=== PATIENT | female | born 2000 | race Caucasian/White ===

== ENCOUNTER 2018-01-26 22:43 | Emergency (ER) | payer OTHER, SELFPAY ==
[2018-01-26 22:44] VITALS: BP 117/73; PULSE 87; RESP 20; TEMP 36.8; O2SAT 98; BMI 27.6
--- NOTE | 2018-01-26 23:06 | ED.DCSUM_ITS ---
- ER Visit Summary Date of Service: 01/26/18 Chief Complaint: Dental pain History of Present Illness: The patient is a 17 F presenting for evaluation secondary to dental pain. Patient reports that she has had a fractured tooth for a year. Patient states that over the course last week she has had increase of pain. Pain is sharp worse with palpation movement eating and drinking. Patient reports that she now is developing subjective fevers and has had nausea and vomiting. Patient states that associated with some facial swelling. Review of systems otherwise negative. Physical Examination: Vital signs within normal limits. Oral exam shows normal oral mucosa. There is evidence of an Moreau 2 dental fracture of the right maxillary bicuspid. No evidence of trismus. Soft sublingual space. No focal abscess noted and there is tenderness to tooth percussion of that area. Test Results: None indicated Emergency Department Course and Treatment: Patient presented secondary to dental pain. Given the fact that this is a old fracture with increasing pain and swelling there likely is an element of infection. Patient will be treated with Naprosyn Zofran and penicillin first doses given in the emergency department. Patient will follow up with a dentist Disposition: Discharge Impression: 1. Dental pain This note was generated with [employer] dictation software. It may contain incorrect words, spelling, and punctuation that were not noted in review of the chart prior to signing ED Disposition - Plan for ED Patient: Disposition: Home or Assisted Living Chief Complaint: Dental Diagnosis: Odontalgia Instructions: ED Tooth Pain Prescriptions: Ondansetron [Zofran Odt] 4 mg PO Q8H PRN PRN #10 tab PRN Reason: Nausea Naproxen [Naprosyn] 500 mg PO BID PRN #20 tab Penicillin V Potassium 500 mg PO 4X/DAY #40 tab Additional Instructions: F/u with a dentist
[2018-01-26] MEDS: Penicillin Vk 250 MG Tablet 500 MG PO (23:09)
[2018-01-26] MEDS: Naproxen 500 MG Tablet PO (23:09)
[2018-01-26] MEDS: Ondansetron ODT 4 MG Tablet PO (23:09)
== END 2018-01-26 23:48 | disposition home or self-care (01) ==
LOC: ED 23:26
PROVIDERS: Emergency Provider Emergency Medicine
DX: S02.5XXA Fracture of tooth (traumatic), initial encounter for closed fracture (principal); K08.89 Other specified disorders of teeth and supporting structures; X58.XXXA Exposure to other specified factors, initial encounter; Y93.9 Activity, unspecified; Y92.9 Unspecified place or not applicable
CPT/HCPCS: 99283

== ENCOUNTER 2018-11-24 16:32 | Emergency (ER) | payer OTHER, SELFPAY ==
[2018-11-24 16:33] VITALS: BP 117/76; PULSE 86; RESP 16; TEMP 36.6; O2SAT 98; BMI 25.6
--- NOTE | 2018-11-24 17:33 | ED.DCSUM_ITS ---
History of Present Illness Chief Complaint: Vag Bleeding Informant: Patient Pain: - - Lysed abdominal bloating Onset: Weeks - Onset October 19 Context: Sudden Onset Timing: Continuous Quality: Aching Location: - - Generalized Current Severity: Moderate Maximum Severity: Moderate Worsened by: - - Nothing Relieved by: - - Nothing Issue: Vaginal bleeding, Passing clots. Negative for: Passing tissue Onset: Weeks - October 19 Context: Sudden Onset Timing: Continuous Current Severity: Heavy Maximum Severity: Heavy Associated Symptoms: Negative for: Dysuria, Frequency, Urgency, Hematuria, Missed Period, Irregular Period Test: Negative Sexually: Active Control: No control P: 0 Narrative: Patient is a 18-year-old who presents with vaginal bleeding started October 19. She reports lightheadedness with standing quickly, fatigue and dyspnea. She does have pica. She has no history of bleeding disorder. There is no family history of bleeding disorder or abnormal heavy menstrual periods. She denies bruising easily or problems with bleeding prior to this episode. 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 Prior similar symptoms: No Recent Illness/Hospitalization: No - Past Medical History (1) No significant past medical history Status: Acute Past Medical History - Allergies and Home Meds Allergies/Adverse Reactions: Allergies No Known Allergies Allergy (Verified 11/24/18 16:35) Primary Care Physician: Nita Singh MD [STAFF PHYSICIAN] - 11/27/18 Care Physician,No Primary [Primary Care Provider] - Surgical History: no surgical history Lives: Alone Smoking Status: Former smoker Alcohol: None Drugs: None Review of Systems General: Reports: Malaise. Denies: Chills, Fever, Subjective, Sweats, Weight loss, - Eyes: Denies: Visual changes - bilaterally, Blurred Vision - bilaterally, Diplopia ENT: Denies: Bilateral ear pain, Rhinorrhea, Sore throat Cardiovascular: Denies: Chest pain, Palpitations Respiratory: Denies: Dyspnea, Cough, Dyspnea on exertion Gastrointestinal: Reports: Abdominal pain. Denies: Nausea, Vomiting, Diarrhea, Constipation, Melena, Hematochezia, -, - Genitourinary: Denies: Dysuria, Hematuria, Frequency Musculoskeletal: Denies: Myalgias, Arthralgias, Neck pain, Back pain, Swelling, Extremity Pain, -, - Skin: Denies: Rash, Wounds Neurological: Reports: Weakness. Denies: Headache, Parasthesia, Numbness, -, - Hematologic: Denies: Easy bruising, Easy bleeding, Lymphadenopathy, -, - Allergy: Denies: Uticaria, Swelling of the mouth, Swelling of the tongue, -, - Physical Exam Vital Signs/Narrative: Vital Signs Temp Pulse Resp BP Pulse Ox 11/24/18 16:33 97.8 F 86 16 117/76 98 Inital Vital Signs reviewed: Yes General: Well nourished, Well developed Head: Normocephalic, Atraumatic Eyes: Perrl, EOMI. Negative for: Pale conjunctiva, Scleral icterus ENT: Moist mucous membranes, No rhinorrhea Neck: Supple, Nontender Cardiovascular: Regular rate, Regular rhythm, No murmurs Respiratory: No distress, CTA bilaterally, Chest nontender Abdomen: Soft, Nontender, Nondistended, Normal bowel sounds : Speculum exam: Normal external genitalia, No vaginal lesions, Old blood, Mild active bleeding, - - null leila cervix. Negative for: No blood in vault, No active bleeding, Normal cervix, Small clots, Large clots, Vaginal tissue present, Cervical tissue present, Cervicitis, White vaginal discharge, Yellow vaginal discharge Bimanual exam: No cervical motion tenderness, Os closed, Normal size uterus, Nontender uterus, Nontender adnexa, bilat. Negative for: Cervical dilation, Tender Uterus, Uterine Mass, Uterine Enlargement Back: Nontender, Normal Inspection Extremities: Nontender, No edema. Negative for: Calf Tenderness Skin: No rash, Pallor. Negative for: Cyanosis, Diaphoresis, Jaundice, No Trauma Neurological: Alert, Oriented x3, Cranial nerves II-XII grossly intact, Normal Strength, Normal Sensation Psychological: Normal affect Diagnostic/Tx/Re-eval Impressions Transvaginal US 11/24/18 21:26 IMPRESSION: 1. Prominent vascular endometrium. 2. Nabothian cyst. 3. Normal bilateral ovaries. Electronically Signed: Tj Yanes DO at 22:17 EDT Tel [phone], Service support , 11/24/18 21:26 Transvaginal Non- [US] Stat Laboratory Results 11/24/18 11/24/18 11/24/18 17:45 17:45 17:45 WBC 4.6 RBC 2.98 L Hgb 7.3 L Hct 23.9 L MCV 80.2 L MCH 24.5 L MCHC 30.5 L RDW Std Deviation 42.3 RDW Coeff of Alejandro 14.4 Plt Count 302 MPV 9.3 Immature Gran % (Auto) 0.200 Neut % (Auto) 53.5 Lymph % (Auto) 37.1 [place] % (Auto) 8.6 Eos % (Auto) 0.2 Baso % (Auto) 0.4 Absolute Neuts (auto) 2.5 Absolute Lymphs (auto) 1.72 Nucleated RBC % 0 Serum , Qual NEGATIVE Blood Type TNP 11/24/18 17:45 WBC RBC Hgb Hct MCV MCH MCHC RDW Std Deviation RDW Coeff of Alejandro Plt Count MPV Immature Gran % (Auto) Neut % (Auto) Lymph % (Auto) [place] % (Auto) Eos % (Auto) Baso % (Auto) Absolute Neuts (auto) Absolute Lymphs (auto) Nucleated RBC % Serum , Qual Blood Type O NEGATIVE - Medical Decision/Diagnostic Studies Recess was obtained to rule out since she is sexually active. Clinically she appears pale. She has symptoms of iron deficiency anemia. Appropriate blood work was ordered to determine H&H and will perform pelvic exam. Case discussed with [facility] on-call. Requested ultrasound. If ultrasound normal discharge home with follow-up Tuesday otherwise will contact her county extension agent. Agrees with iron 325 mg 3 times daily. ED Disposition - Plan for ED Patient: Disposition: Home or Assisted Living Diagnosis: Vaginal bleeding, Anemia due to blood loss, Microcytic anemia Instructions: ANEMIA, Iron Deficiency (Adult), Dysfunctional Uterine Bleeding Prescriptions: Ferrous Gluconate [Iron] 240 mg PO TID #90 tab Prescription Printed Referrals: Care Physician,No Primary [Primary Care Provider] - Nita Singh MD [STAFF PHYSICIAN] - 11/27/18 Additional Instructions: Call office tomorrow morning to be seen Tuesday. You will need to take 1 iron tablet 3 times a day
[2018-11-24 17:57] LABS: Absolute Lymphocyte Count 1.72 X10^3/uL (0.83-4.51); Absolute Neutrophil Count 2.5 X10^3/uL (2.0-7.7); Basophil# 0.02 X10^3/uL; Basophil% 0.4 % (0-1); Eosinophil# 0.01 X10^3/uL; Eosinophils% 0.2 % (0-5); Hematocrit 23.9 % (37-47); Hemoglobin 7.3 g/dL (12.0-15.0); Lymphocyte # 1.72 X10^3/ul (4.0); Lymphocyte % 37.1 % (19-41); Mean Corp Hgb Conc 30.5 g/dL (32-36); Mean Corpuscular Hgb 24.5 pg (27.0-32.0); Mean Corpuscular Volume 80.2 fL (81-99); Mean Platelet Vol. 9.3 fl (6.2-12.0); Monocyte% 8.6 % (0-10); NRBC Flagged by Analyzer 0 % (0-5); Neutrophil # 2.47 X10^3/uL (2.7-7.7); Neutrophil % 53.5 % (47-70); Platelet Count 302 K/mm3 (150-450); RBC Distribution Width CV 14.4 % (11.6-14.6); RBC Distribution Width SD 42.3 fl (35.1-43.9); Red Blood Count 2.98 M/mm3 (4.2-5.4); White Blood Count 4.6 K/mm3 (4.4-11.0)
[2018-11-24 18:08] LABS: Internal QC Validated? YES +Cl - CLEAR BKGD; Pregnancy, Serum, hCG Quali. NEGATIVE Negative
[2018-11-24 18:27] VITALS: BP 107/65; RESP 18; O2SAT 95
--- NOTE | 2018-11-24 19:49 | CM.ED ---
SOCIAL WORK INFORMANT: SELF REFERRAL REASON FOR REFERRAL: NO PRIMARY CARE PHYSICIAN MET WITH PATIENT IN ROOM. INTRODUCED ROLE AND REASON FOR REFERRAL. DISCUSSED PRIMARY CARE AND IMPORTANCE OF ESTABLISHING WITH A PRIMARY CARE PROVIDER. LIST OF LOCAL PRIMARY CARE PHYSICIANS GIVEN TO PATIENT. PATIENT DENIES ANY FURTHER QUESTIONS OR CONCERNS. WILL RETURN HOME BEFORE AT D/C. CLAUDIO SUAREZ MSW, MEDICAL RECORDS TECHNICIAN.
[2018-11-24 20:42] VITALS: BP 106/64; PULSE 101; RESP 15; O2SAT 100
[2018-11-24] MEDS: Ondansetron 4 MG/2 ML Vial IV (20:42)
--- NOTE | 2018-11-24 21:26 | US_ITS ---
STUDY: ULTRASOUND OF THE FEMALE PELVIS - COMPLETE REASON FOR EXAM: Female, 18 years old. Vaginal bleeding since October 19 screws clots and severe pain. LMP: October 19, 2018. TECHNIQUE: Transvaginal TECHNICAL QUALITY: Adequate. COMPARISON: None. FINDINGS: The uterus is retroverted and is in a midline position. The uterus measures 7.4 x 5.8 x 4.1 cm. There is a Nabothian cyst of the cervix. The endometrium measures 19 mm in thickness, and is hyperechoic. No distinct mass of the liver is increased vascularity along the endometrium. There is no demonstrated myometrial mass. I.U.D. - The patient does not have an I.U.D. The right ovary is visualized. The right ovary measures 3.7 x 3.6 x 2.0 cm. There is a 1.7 x 1.7 x 1.3 cm dominant follicle. There is no visualized right adnexal mass or complex lesion. There is normal arterial and normal venous vascularity. The left ovary is visualized. The left ovary measures 3.4 x 2.7 x 2.2 cm. There are multiple follicles of the left ovary without a dominant cyst. There is no visualized left adnexal mass or complex lesion. There is normal arterial and normal venous vascularity. There is no fluid in the cul-de-sac. US/Transvaginal Non- IMPRESSION: 1. Prominent vascular endometrium. 2. Nabothian cyst. 3. Normal bilateral ovaries. Electronically Signed: Tj Yanes DO at 22:17 EDT Tel [phone], Service support ,
[2018-11-24 22:48] VITALS: BP 102/63; PULSE 98; RESP 16; O2SAT 98
== END 2018-11-24 22:49 | disposition home or self-care (01) ==
PROVIDERS: Emergency Provider Emergency Medicine
DX: N93.9 Abnormal uterine and vaginal bleeding, unspecified (principal); D50.0 Iron deficiency anemia secondary to blood loss (chronic); N88.8 Other specified noninflammatory disorders of cervix uteri; Z87.891 Personal history of nicotine dependence
CPT/HCPCS: 76830; 84703; 85025; 86900; 86901; 93976; 96374; 99283; A4216; J2405

== ENCOUNTER 2019-04-08 01:09 | Emergency (ER) | payer SELFPAY ==
[2019-04-08 01:10] VITALS: BP 119/77; PULSE 99; RESP 18; TEMP 36.9; O2SAT 97; BMI 27.3
[2019-04-08 01:48] LABS: Bacteria 0 SEEN /hpf (None Seen); Mucous, Urine 0 SEEN /hpf (<or=2+); Red Blood Cells-Urine 0 SEEN /hpf (0-5)
[2019-04-08 01:49] LABS: Color, Urine Straw (Yellow); Glucose, Dipstick Normal (Normal); Ketone-Dipstick Negative (Negative); Leukocyte Esterase-Dipstick 500 /ul (Negative); Nitrite-Dipstick Negative (Negative); Occult Blood-Urine 50 /ul (Negative); Protein-Dipstick Negative (Negative); Urine Bilirubin Dipstick Negative (Negative); Urine Clarity Clear (Clear); Urine Urobilinogen Normal (Normal)
[2019-04-08 01:54] LABS: Internal QC Validated? YES +Cl - CLEAR BKGD; Pregnancy, Urine Negative Negative
[2019-04-08 02:06] LABS: Squamous Epithelial Cells - UA 10-25 SEEN /hpf (5-10); White Blood Cells 5-10 SEEN /hpf (0-5)
[2019-04-08 02:19] VITALS: BP 107/82; PULSE 88; RESP 15; O2SAT 98
--- NOTE | 2019-04-08 02:21 | ED.DCSUM_ITS ---
- ER Visit Summary Date of Service: 04/08/19 Chief Complaint: UTI History of Present Illness: The patient is a 18 F with UTI symptoms for the past week. She reports suprapubic pain, pressure, dysuria. She does have bilateral lower back pain. No fevers. History of UTIs. Physical Examination: Afebrile and vital signs unremarkable. Suprapubic tenderness. No guarding or rebound. Back is tender over the SI regions bilaterally. No CVA tenderness. Test Results: Urinalysis shows elevated leukocyte esterase and white cells. test negative. Emergency Department Course and Treatment: Patient treated for cystitis with Macrobid and Pyridium. Follow-up with primary care. Return for new or worsening issues. Treatment Plan: As above Disposition: Discharge Impression: 1. UTI cystitis This note was generated with [employer] dictation software. It may contain incorrect words, spelling, and punctuation that were not noted in review of the chart prior to signing ED Disposition - Plan for ED Patient: Referrals: Care Physician,No Primary [Primary Care Provider] -
--- NOTE | 2019-04-08 02:22 | ED.DEP ---
ED Disposition - Plan for ED Patient: Instructions: Understanding Urinary Tract Infections (UTIs) Prescriptions: Nitrofurantoin Macrocrystals [Macrobid] 100 mg PO Q12 #10 cap Prescription Printed Phenazopyridine HCl [Pyridium] 200 mg PO TID #6 tab Prescription Printed Referrals: Madhuri Jones [NON-STAFF] -
[2019-04-08] MEDS: Nitrofurantoin Macrocrystals 100 MG Capsule PO (02:38)
[2019-04-08] MEDS: Phenazopyridine 95 MG Tablet 190 MG PO (02:38)
== END 2019-04-08 02:41 | disposition home or self-care (01) ==
PROVIDERS: Emergency Provider Emergency Medicine
DX: N30.90 Cystitis, unspecified without hematuria (principal); Z87.440 Personal history of urinary (tract) infections; Z87.891 Personal history of nicotine dependence
CPT/HCPCS: 81001; 81025; 99283

== ENCOUNTER 2019-06-29 23:01 | Emergency (ER) | payer SELFPAY ==
[2019-06-29 23:02] VITALS: BP 115/74; PULSE 96; RESP 18; TEMP 36.3; O2SAT 98; BMI 26.2
--- NOTE | 2019-06-29 23:08 | ED.VIS.GEN ---
History of Present Illness Chief Complaint: Cough Informant: Patient Onset: Weeks - Proximately 1 week ago Context: Sudden Onset Timing: Continuous Quality: Nasal congestion, sore throat and nonproductive cough Location: Upper respiratory Current Severity: Mild Maximum Severity: Mild Worsened by: Nothing Relieved by: Nothing Associated Symptoms: T-max 99.4 Narrative: Patient presents with viral-like symptoms of [1 week ago. She denies fever. She denies headache, photophobia, ocular, visual or auditory symptoms. She does report nasal congestion runny nose. She does report sore throat. The cough is nonproductive. She does not smoke. She states she vapes. She denies chest pain. She denies dyspnea with exertion. She denies GI symptoms. She denies myalgias arthralgias. She denies joint swelling. Prior similar symptoms: No Recent Illness/Hospitalization: No - Past Medical History (1) No significant past medical history Status: Acute Past Medical History - Allergies and Home Meds Allergies/Adverse Reactions: Allergies No Known Allergies Allergy (Verified 06/29/19 23:04) Primary Care Physician: Care Physician,No Primary [Primary Care Provider] - Prior records reviewed: Yes Surgical History: no surgical history Lives: Roommate Smoking Status: Never smoker Alcohol: None Drugs: None Review of Systems General: Denies: Chills, Fever, Malaise, Sweats Eyes: Denies: Visual changes - bilaterally, Blurred Vision - bilaterally ENT: Reports: Rhinorrhea, Sore throat. Denies: Bilateral ear pain Cardiovascular: Denies: Chest pain, Palpitations Respiratory: Reports: Cough. Denies: Dyspnea, Sputum, Dyspnea on exertion Gastrointestinal: Denies: Abdominal pain, Nausea, Vomiting, Diarrhea, Melena, Hematochezia Genitourinary: Denies: Dysuria, Hematuria, Frequency Musculoskeletal: Denies: Myalgias, Arthralgias, Neck pain, Back pain, Swelling, Extremity Pain, -, - Skin: Denies: Rash Neurological: Denies: Headache, Parasthesia Physical Exam Vital Signs/Narrative: Vital Signs Temp Pulse Resp BP Pulse Ox 06/29/19 23:02 97.3 F L 96 18 115/74 98 Inital Vital Signs reviewed: Yes General: Well nourished, Well developed, No Acute Distress Head: Normocephalic, Atraumatic Eyes: Perrl, EOMI ENT: Moist mucous membranes, No rhinorrhea Neck: Supple, Nontender Cardiovascular: Regular rate, Regular rhythm, No murmurs, Normal S1, Normal S2 Respiratory: No distress, CTA bilaterally, Chest nontender Abdomen: Soft, Nontender, Nondistended, Normal bowel sounds Extremities: Nontender, No edema Skin: Normal color, No rash Neurological: Alert, Oriented x3, Cranial nerves II-XII grossly intact, Normal Strength, Normal Sensation Psychological: Normal affect, Normal Mood Diagnostic/Tx/Re-eval - Medical Decision Making Patient's history and physical exam is consistent with viral upper respiratory infection. Since her vitals are normal and she does not have an elevated temperature imaging is not indicated nor is any blood testing including screening for influenza or any other viral infection. ED Disposition - Plan for ED Patient: Disposition: Home or Assisted Living Diagnosis: Upper respiratory infection with cough and congestion Instructions: URI, Viral, No Abx (Adult) Referrals: Care Physician,No Primary [Primary Care Provider] - Additional Instructions: If you are no better in 10 to 14 days follow-up with the primary care physician. The name of your primary care physician is listed on your insurance card.
[2019-06-29 23:47] VITALS: BP 115/74; PULSE 96; RESP 18; O2SAT 98
== END 2019-06-29 23:48 | disposition home or self-care (01) ==
LOC: ED 23:21
PROVIDERS: Emergency Provider Emergency Medicine
DX: J06.9 Acute upper respiratory infection, unspecified (principal); R05 Cough; R09.81 Nasal congestion
CPT/HCPCS: 99282

== ENCOUNTER 2020-04-25 22:51 | Emergency (ER) | payer BC, SELFPAY ==
[2020-04-25 22:51] VITALS: BP 133/77; PULSE 93; RESP 16; TEMP 36.4; O2SAT 98; BMI 25.2
--- NOTE | 2020-04-25 23:02 | ED.VIS.GEN ---
History of Present Illness Chief Complaint: Dental Informant: Patient Narrative: Patient presented with uvular gum inflammation. Is been bothering her for 3 months. She is done occasional Listerine and occasional peroxide with minimal relief. Comes in for further evaluation. She has a dentist appointment but not for several weeks. She is not having any dental pain. It hurts when water touches her gumline. Current severity is mild. 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 Denies: Rhinorrhea, Sore throat Cardiovascular: Denies: Chest pain, Palpitations Respiratory: Denies: Dyspnea, Cough, Dyspnea on exertion Gastrointestinal: Denies: Abdominal pain, Nausea, Vomiting, Diarrhea, Melena, Hematochezia Genitourinary: Denies: Dysuria, Hematuria, Frequency Musculoskeletal: Denies: Back pain, Extremity Pain Skin: Denies: Rash, Wounds Neurological: Denies: Headache, Weakness, Numbness Physical Exam Vital Signs/Narrative: Vital Signs Temp Pulse Resp BP Pulse Ox 04/25/20 22:51 97.5 F L 93 16 133/77 H 98 General: Well nourished, Well developed, No Acute Distress Head: Normocephalic, Atraumatic Eyes: Perrl, EOMI ENT: Moist mucous membranes, No rhinorrhea, - - Patient has superficial gingivitis on the lower mandibular gumline over the central lateral incisors. No abscess or dental infection. The rest of her gums are normal Neck: Supple, Nontender Cardiovascular: Regular rate, Regular rhythm, No murmurs Respiratory: No distress, CTA bilaterally, Chest nontender Abdomen: Soft, Nontender, Nondistended, Normal bowel sounds Back: Nontender, Normal Inspection Extremities: Nontender, No edema Skin: Normal color, No rash Neurological: Alert, Oriented x3, Cranial nerves II-XII grossly intact, Normal Strength, Normal Sensation Psychological: Normal affect, Normal Mood Diagnostic/Tx/Re-eval - Medical Decision Making Patient will be given oral periodex prescription mouthwash. We will follow-up as an outpatient with her dentist for gingivitis. There is no dental infection or abscess ED Disposition - Plan for ED Patient: Disposition: Home or Assisted Living Diagnosis: Gingivitis Instructions: Understanding Gingivitis Prescriptions: Chlorhexidine Gluconate [Periogard] 473 ml MM BID 30 Days #1 mouthwash Transmission Status: Pending to [facility] [id number]
== END 2020-04-25 23:16 | disposition home or self-care (01) ==
LOC: ED 23:11
PROVIDERS: Emergency Provider Emergency Medicine
DX: K05.10 Chronic gingivitis, plaque induced (principal); M54.2 Cervicalgia; G89.29 Other chronic pain
CPT/HCPCS: 99282

== ENCOUNTER 2022-04-14 08:03 | Emergency (ER) | payer MEDICAID, SELFPAY ==
[2022-04-14 08:04] VITALS: BP 132/78; PULSE 86; RESP 17; TEMP 35.6; O2SAT 98; BMI 27.5
--- NOTE | 2022-04-14 08:49 | EX.ED.DYSGE1 ---
HPI History of Present Illness Chief Complaint: Dizziness Informant: patient Onset/Context/Timing Onset: Days (4-5) Context: Sudden Onset (Getting out of bed in morning) Timing: Continuous and Waxes and wanes Quality: Spinning/movement Location: head Current Severity: Mild Maximum Severity: Severe Worsened by: Turning head or changing position of body such as sitting up or lying down Relieved by: Remaining still Associated Symptoms Associated Symptoms: URI symptoms, ears bothering her and popping on occasion, nausea Narrative Narrative: Patient has had concurrent URI symptoms along with cough, congestion, runny nose, she states her mom checked her temperature this morning and it was 100.4, but she did not have any fevers that she knew of before this morning. This been going on for 4 to 5 days. She states the dizziness is really making her anxious, she states she has anxiety issues that are not treated with any medications prior to this. She has a mild diffuse frontal headache. She denies any focal peripheral neurologic symptoms. When she feels dizzy her vision is blurry but she denies any diplopia, and the vision goes back to normal when her dizziness improves. She has had no otorrhea. She has had tinnitus bilaterally since the symptoms have started as well. 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 Home Medications meclizine 25 mg tablet 25 mg PO Q8H PRN PRN Dizziness #20 tabs 04/14/22 [Rx Last Taken Unknown] melatonin 5 mg tablet 5 mg PO QHS 04/14/22 [History Last Taken 04/10/22] metoclopramide HCl 10 mg tablet 10 mg PO Q6H PRN nausea and vomiting #12 tabs 04/14/22 [Rx Last Taken Unknown] Allergy/AdvReac Type Severity Reaction Status Date / Time No Known Allergies Allergy Verified 04/14/22 08:03 Social History Smoking Status: Current every day smoker tobacco type: cigarettes and e-cigarettes ROS ROS ED Constitutional Constitutional ED: Reports fever(s); Denies chills Eyes Eyes: Reports blurry vision bilateral (when vertiginous); Denies diplopia ENT ENT ED: Reports ear pain bilateral (and popping on occasion), headache(s), nasal congestion, rhinorrhea, tinnitus and vertigo; Denies sore throat Cardiovascular Cardiovascular: Denies chest pain or palpitations Respiratory/Chest Respiratory/Chest: Reports cough; Denies dyspnea Gastrointestinal Gastrointestinal: Denies abdominal pain, diarrhea, nausea or vomiting Genitourinary Genitourinary ED: Denies dysuria or hematuria Musculoskeletal Musculoskeletal: Denies back pain, myalgias or neck pain Integumentary Denies abscess or rash Neurologic Neurologic: Reports headache(s) and vertigo; Denies paresthesias or weakness Psychiatric Psychiatric: Reports anxiety; Denies depression, suicidal ideation or suicidal thoughts Endocrine Endocrinology: Denies polydipsia or polyuria EXAM Physical Exam Const Vital Signs: 04/14/22 08:04 04/14/22 08:04 Temperature 96.1 F L Temperature Source Temporal Pulse Rate 86 Respiratory Rate 17 Respiratory Effort Normal Non-Labored Respiratory Pattern Normal Blood Pressure 132/78 H Blood Pressure Mean 96 Pulse Ox 98 Oxygen Delivery Method Room Air Positive well nourished and well developed General Appearance ED: well developed and NAD HEENT Reports TM's clear and moist mucous membranes normocephalic and atraumatic Tympanic Membrane ED: Yes TM's clear Throat: Negative for posterior oropharynx abnormal Eyes PERRL and EOMs intact bilaterally Eyes Narrative: Fatigable horizontal nystagmus. No rotatory or vertical nystagmus. No conjunctival injection. Neck no lymphadenopathy, supple and no meningeal signs Resp normal respiratory effort and clear to auscultation bilaterally Cardio no murmurs Rate: regular rate; Negative for tachycardic Rhythm: regular rhythm GI normal to inspection, nondistended, normoactive bowel sounds and non-tender Back/Spine no CVA tenderness Back/Spine Narrative: FROM Extremity normal to inspection General Extremety ED: Negative for edema or tenderness General Extremity: Negative for edema Neuro oriented x3, CN's II-XII intact bilaterally and no sensory deficits noted Neuro Narrative: Normal [id number] and [id number] bilaterally. Normal gait without ataxia. Abnormal jolt sign, with difficulty focusing on object. Sensorium / Orientation: alert Motor Exam: strength 5/5 throughout Psych mental status grossly normal Skin no rashes or lesions noted Lesions: no lesions Rashes: no rashes MDM MDM MDM Narrative Medical decision making narrative: Her history and exam are definitely more consistent with peripheral etiology of vertigo. The patient was in the waiting room for a little while prior to evaluation so nurses ordered protocol orders on here which included work-up for central vertigo. I canceled most of this prior to it happening, I left the basic labs because of her history of anemia. Those labs are fine, and COVID and influenza are negative as well. In the meantime she was given Zofran and meclizine and had some improvement she will be be admitted prescriptions for medications to help with her symptoms, she want something for anxiety. I reassured her that the antihistamine should be fine for now and she can follow-up with her doctor for more medicines if they are needed. Lab Data Attestation: I reviewed the patient's lab results. Labs: Laboratory Results - last 24 hr 04/14/22 04/14/22 08:23 08:23 WBC 6.9 RBC 4.56 Hgb 12.7 Hct 37.8 MCV 82.9 MCH 27.9 MCHC 33.6 RDW Std Deviation 42.0 RDW Coeff of Alejandro 14.0 Plt Count 379 MPV 9.2 Immature Gran % (Auto) 0.100 Neut % (Auto) 57.8 Lymph % (Auto) 34.5 [place] % (Auto) 7.1 Eos % (Auto) 0.1 Baso % (Auto) 0.4 Absolute Neuts (auto) 4.0 Absolute Lymphs (auto) 2.37 Nucleated RBC % 0 Sodium 137 Potassium 3.6 Chloride 105 Carbon Dioxide 26.0 Anion Gap 6 BUN 13 Creatinine 0.73 Estim Creat Clear Calc 86.09 Est GFR (MDRD) Af Amer 126 Est GFR (MDRD) Non-Af 104 BUN/Creatinine Ratio 17.8 Glucose 99 Calcium 9.6 Discharge Plan Triage Chief Complaint: Dizziness ED Provider: Sreekanth Kuhn Dx/Rx/DC Orders Clinical Impression: Viral URI with cough, Peripheral vertigo Instructions: ED Vertigo, Unspecified, ED URI, Viral, No Abx (Adult) Prescriptions: New meclizine [meclizine] 25 mg tablet 25 mg PO Q8H PRN PRN (Reason: Dizziness) Qty: 20 0RF metoclopramide HCl [metoclopramide HCl] 10 mg tablet 10 mg PO Q6H PRN (Reason: nausea and vomiting) Qty: 12 0RF No Action melatonin 5 mg Tablet 5 mg PO QHS Primary Care Provider: Care Physician,No Primary Referrals: Care Physician,No Primary [Primary Care Provider] - Doctor,Your [Non-Staff] - 1 Week if not improving (check your insurance card for your primary care physician's name if you don't already know it) Disposition Disposition: Home, Self Care
[2022-04-14] MEDS: Ondansetron ODT 4 MG Tablet 8 MG PO (08:58)
[2022-04-14] MEDS: Ibuprofen 600 MG Tablet PO (08:58)
[2022-04-14] MEDS: Meclizine HCl 25 MG Tablet PO (08:58)
[2022-04-14 09:01] LABS: Absolute Lymphocyte Count 2.37 X10^3/uL (0.83-4.51); Basophil# 0.03 X10^3/uL; Basophil% 0.4 % (0-1); Eosinophil# 0.01 X10^3/uL; Eosinophils% 0.1 % (0-5); Hematocrit 37.8 % (37-47); Hemoglobin 12.7 g/dL (12.0-15.0); Lymphocyte # 2.37 X10^3/ul (0.83-4.51); Lymphocyte % 34.5 % (19-41); Mean Corp Hgb Conc 33.6 g/dL (32-36); Mean Corpuscular Hgb 27.9 pg (27.0-32.0); Mean Corpuscular Volume 82.9 fL (81-99); Mean Platelet Vol. 9.2 fl (6.2-12.0); Monocyte# 0.49 X10^3/uL; Monocyte% 7.1 % (0-10); NRBC Flagged by Analyzer 0 % (0-5); Neutrophil # 3.95 X10^3/uL (2.7-7.7); Neutrophil % 57.8 % (47-70); Platelet Count 379 K/mm3 (150-450); Red Blood Count 4.56 M/mm3 (4.2-5.4); White Blood Count 6.9 K/mm3 (4.4-11.0)
[2022-04-14 09:14] LABS: Anion Gap 6 (5-15); BUN 13 mg/dL (7-18); BUN/Creat Ratio 17.8 RATIO (10-20); Calcium,Total 9.6 mg/dL (8.5-10.1); Chloride 105 mmol/L (98-107); Creatinine, Serum 0.73 mg/dL (0.55-1.02); EST Glomerular Filtration Rate 104 mL/min (>60); Est Glom Filt Rate - Afr Amer 126 mL/min (>60); Estimated Creatinine Clearance 86.09 ml/min; Glucose 99 mg/dL (74-106); Potassium 3.6 mmol/L (3.5-5.1); Sodium Level 137 mmol/L (136-145)
[2022-04-14 09:41] VITALS: BP 124/63; PULSE 72; RESP 15; O2SAT 98
== END 2022-04-14 09:42 | disposition home or self-care (01) ==
PROVIDERS: Emergency Provider Emergency Medicine; Visit Provider Emergency Medicine
DX: J06.9 Acute upper respiratory infection, unspecified (principal); R42 Dizziness and giddiness; F17.210 Nicotine dependence, cigarettes, uncomplicated
CPT/HCPCS: 80048; 85025; 87428; 99284

== ENCOUNTER → 2024-08-08 | Outpatient (CLI) | payer MEDICAID, SELFPAY ==
[2024-08-08 16:55] LABS: Absolute Neutrophil Count 3.1 X10^3/uL (2.0-7.7); Basophil# 0.02 X10^3/uL; Basophil% 0.4 % (0-1); Eosinophil# 0.02 X10^3/uL; Eosinophils% 0.4 % (0-5); Hematocrit 28.2 % (37-47); Hemoglobin 8.1 g/dL (12.0-15.0); Mean Corp Hgb Conc 28.7 g/dL (32-36); Mean Corpuscular Hgb 21.4 pg (27.0-32.0); Mean Corpuscular Volume 74.6 fL (81-99); Monocyte# 0.33 X10^3/uL; Monocyte% 6.2 % (0-10); NRBC Flagged by Analyzer 0 % (0-5); Neutrophil # 3.12 X10^3/uL (2.7-7.7); Neutrophil % 58.8 % (47-70); Platelet Count 338 K/mm3 (150-450); RBC Distribution Width CV 16.8 % (11.6-14.6); RBC Distribution Width SD 45.5 fl (35.1-43.9); Red Blood Count 3.78 M/mm3 (4.2-5.4); White Blood Count 5.3 K/mm3 (4.4-11.0)
[2024-08-08 17:33] LABS: Hemoglobin A1c 4.9 % (<=5.6)
[2024-08-08 17:51] LABS: ALB/GLOB Ratio 1.5 RATIO (0.9-2.4); AST(SGOT) 19 U/L (<=31); Alanine Aminotransfer ALT/SGPT 11 U/L (<=34); Albumin, Serum 4.6 g/dL (3.5-5.0); Alkaline Phosphatase 84 U/L (35-104); Anion Gap 12 (5-15); BUN 9 mg/dL (4-19); BUN/Creat Ratio 12.3 RATIO (10-20); Calcium,Total 9.5 mg/dL (7.6-11.0); Carbon Dioxide 20.2 mmol/L (21.0-32.0); Chloride 106 mmol/L (98-108); Cholesterol 125 mg/dL (<=200); Creatinine, Serum 0.71 mg/dL (0.70-1.20); EST Glomerular Filtration Rate 121 (>60); Globulin 3.1 g/dL (2.2-4.2); Glucose 90 mg/dL (70-99); High Density Lipoprotein 44 mg/dL; Low Density Lipoprotein Calc. 67 mg/dL; Potassium 3.9 mmol/L (3.3-5.1); Protein, Total 7.7 g/dL (5.9-8.4); Sodium Level 138 mmol/L (133-145); Total Bilirubin 0.35 mg/dL (0.00-1.30); Triglycerides 69 mg/dL; Very Low Density Lipoprotein 14 mg/dL (5-40); Vitamin D,25 Hydroxy 21.3 ng/mL (30-100); cholesterol:hdl ratio screen 2.85
[2024-08-10 04:07] LABS: PROGESTERONE 0.1 ng/mL (.)
[2024-08-11 17:07] LABS: PROLACTIN 26.6 ng/mL (4.8-33.4); Testosterone Free 1.1 pg/mL (0.0-4.2)
[2024-08-13 15:23] LABS: HPV Reflexed? NOT INDICATED
== END | disposition home or self-care (01) ==
PROVIDERS: Referring Provider Nurse Practitioner Family; Visit Provider Nurse Practitioner Family
DX: E28.2 Polycystic ovarian syndrome (principal)
CPT/HCPCS: 36415; 80053; 80061; 82306; 82627; 83036; 84144; 84146; 84402; 84439; 84443; 85025; 88175; 82626; G0145

== ENCOUNTER → 2024-08-13 | Outpatient (CLI) | payer MEDICAID, SELFPAY ==
--- NOTE | 2024-08-13 17:56 | US_ITS ---
PROCEDURE: PELVIC W/ TRANSVAGINAL (USPELTVAG), 08/13/2024 REASON FOR EXAM: PCOS TECHNIQUE: Grayscale, color Doppler, and spectral Doppler transabdominal and transvaginal pelvic ultrasound was performed. COMPARISON: 11/24/2018 FINDINGS: Uterus: 6.9 x 4.8 x 3.5 cm, retroverted. Unremarkable echotexture. Endometrium: 19 mm, echogenic secretory appearance with tiny cystic areas are and associated vascularity. Cervix: Nabothian cysts Right ovary: 3.5 x 3.2 x 1.9 cm (estimated volume 11.1 mL). Numerous follicles however these do not appear peripherally located and there are less than 10 per single image. Normal low resistance arterial waveforms. Left ovary: 3.8 x 2.9 x 2.3 cm (estimated volume 13.2 mL. Numerous follicles, greater than or equal to 10 per image. Central stroma does not appear echogenic. Normal faint low resistance arterial and likely superimposed venous. Free fluid: Trace, potentially physiologic Other: Estimated bladder volume 263 mL. US/Pelvic w/ Transvaginal IMPRESSION: 1. Findings are borderline and narrowly do not meet criteria to suggest polycys tic ovarian syndrome on the RIGHT, however narrowly meet criteria on the LEFT. Correlate with clinical and laboratory lilian luation. 2. Endometrial thickening for a premenopausal female, with nonspecific heteroge neity and vascularity. This may reflect hyperplasia however recommend follow-up in the early proliferative phase when e ndometrial thickness is expected to be at a miguel to ensure resolution. 3. Additional description as above. Reading Location: [id number]
== END | disposition home or self-care (01) ==
LOC: US 17:53
PROVIDERS: PCP Nurse Practitioner Family; Referring Provider Nurse Practitioner Family; Visit Provider Nurse Practitioner Family
DX: E28.2 Polycystic ovarian syndrome (principal)
CPT/HCPCS: 76830; 76856

== ENCOUNTER 2024-08-28 12:58 | Outpatient (CLI) | payer MEDICAID, SELFPAY ==
[2024-08-28 13:13] VITALS: BP 106/63; PULSE 84; RESP 16; TEMP 36.5; O2SAT 100; BMI 26.9
[2024-08-28] MEDS: Iron Sucrose Complex (Venofer) 300 MG in 0.9% NaCl 250 ML 176.7 MG IV (13:33)
== END 2024-08-28 23:59 | disposition home or self-care (01) ==
LOC: MEDOUTP 12:59
PROVIDERS: Referring Provider Nurse Practitioner Family; Visit Provider Nurse Practitioner Family
DX: D64.9 Anemia, unspecified (principal)
CPT/HCPCS: 96365; 96366; J1756

== ENCOUNTER 2024-09-04 12:56 | Outpatient (CLI) | payer MEDICAID, SELFPAY ==
[2024-09-04 13:08] VITALS: BP 100/58; PULSE 79; RESP 16; TEMP 36.4; O2SAT 98
[2024-09-04] MEDS: 0.9% NaCl Peripheral Flush Adult IV (13:12)
[2024-09-04] MEDS: Iron Sucrose Complex (Venofer) 300 MG in 0.9% NaCl 250 ML 176.7 MG IV (13:17)
[2024-09-04] MEDS: 0.9% NaCl IVPB Med Flush (100mL) 15 ML IV (13:17)
[2024-09-04 15:15] VITALS: BP 103/60; PULSE 71; RESP 16; TEMP 37; O2SAT 98
== END 2024-09-04 23:59 | disposition home or self-care (01) ==
LOC: MEDOUTP 12:56
PROVIDERS: PCP Nurse Practitioner Family; Referring Provider Nurse Practitioner Family; Visit Provider Nurse Practitioner Family
DX: D64.9 Anemia, unspecified (principal)
CPT/HCPCS: 96365; 96366; J1756; A4216

== ENCOUNTER 2024-09-12 13:04 | Outpatient (CLI) | payer MEDICAID, SELFPAY ==
[2024-09-12 13:16] VITALS: BP 111/69; PULSE 88; RESP 16; TEMP 35.7; O2SAT 100
[2024-09-12] MEDS: 0.9% NaCl Peripheral Flush Adult IV (13:27)
[2024-09-12] MEDS: 0.9% NaCl IVPB Med Flush (100mL) 15 ML IV (13:27)
[2024-09-12] MEDS: Iron Sucrose Complex (Venofer) 300 MG in 0.9% NaCl 250 ML 176.7 MG IV (13:30)
[2024-09-12 15:24] VITALS: BP 100/56; PULSE 71; RESP 16
== END 2024-09-12 23:59 | disposition home or self-care (01) ==
LOC: MEDOUTP 13:04
PROVIDERS: PCP Nurse Practitioner Family; Referring Provider Nurse Practitioner Family; Visit Provider Nurse Practitioner Family
DX: D64.9 Anemia, unspecified (principal)
CPT/HCPCS: 96365; 96366; J1756; A4216

== ENCOUNTER → 2024-10-01 | Outpatient (CLI) | payer MEDICAID, SELFPAY ==
--- NOTE | 2024-10-01 16:23 | US_ITS ---
PROCEDURE: PELVIC W/ TRANSVAGINAL REASON FOR EXAM: AUB TECHNIQUE: PELVIC W/ TRANSVAGINAL COMPARISON: Prior study dated August 13, 2024. FINDINGS: LMP: September 25, 2024 Measurements: Uterus: 8.2 cm x 6.7 cm x 4.1 cm with a volume of 117.73 mL Endometrial Thickness: 5 mm. Trace amount of endometrial fluid. Right Ovary: 3.6 cm x 2.6 cm x 2.4 cm with a volume of 14.75 mL. Left Ovary: 3.8 cm x 2.3 cm x 2.3 cm with a volume of 8.65 mL. TRANSABDOMINAL: Uterus: Normal size, myometrial echotexture, and contour. Endometrium: Unremarkable. Right ovary: Small follicles are seen along the peripheral aspect of the right ovary. Left ovary: Small follicles are seen in the peripheral aspect of the left ovary. Other: No large pelvic mass identified. Transvaginal sonography was performed to better visualize the endometrium. TRANSVAGINAL: Uterus: Retroverted. Endometrium: Normal echotexture. Right ovary: Small follicles are seen in the peripheral aspect of the right ovary. Left ovary: Small follicles are seen in the peripheral aspect of the left ovary. Other adnexal findings: None. Cul-de-sac: No free intraperitoneal fluid identified. Tenderness: No tenderness US/Pelvic w/ Transvaginal IMPRESSION: Stable examination. Findings suggestive of polycystic ovary. Reading Location: [place] [id number]
== END | disposition home or self-care (01) ==
LOC: US 16:21
PROVIDERS: PCP Nurse Practitioner Family; Referring Provider Nurse Practitioner Family; Visit Provider Nurse Practitioner Family
DX: N93.9 Abnormal uterine and vaginal bleeding, unspecified (principal); E28.2 Polycystic ovarian syndrome
CPT/HCPCS: 76830; 76856

== ENCOUNTER → 2025-03-09 | Outpatient (CLI) | payer MEDICAID, SELFPAY ==
--- OUTSIDE RECORDS SUMMARY | 2025-03-09 11:28 | XMS RPT_ITS | CCD ---
Author Organization [facility] Care Team Providers Care Supervisor Toy [employer] Name Role Phone Care Physician, No Primary Primary Care Provider Unavailable Care Physician, No Primary Referring Provider Un available Ping NEWBERRY, CONI Rojo Attending Provider PHYSICIAN, NONE Primary Care Physician Unavailab Lang Cespedes MD Primary Care Provider DR. ANAND JOSE DO Attending Unavailable PHYSICIAN, NONE Primary Care Unavailable Poppy Pham Unavailable Unavailable Unavailable Poppy Pham CNP Primary Care Provider Ms. Poppy Pham Referring Unavailable Ankit, Kellen Tinoco Primary Care Unavailable Ankit, Ms. Poppy Tinoco Attending Unavailable Ankit, Kellen Poppychirag Tinoco Referring Unavailable Ankit, Kellen Tinoco Primary Care Unavailable Ankit, Ms. Poppy Tinoco Attending Unavailable Lang Chen MD Primary Care Provider JANINA GARCIA Referring Unavailable LANG CHEN Primary Care Unavailable JANINA GARCIA Attending Unavailable LANG CHEN Primary Care Unavailable Care Physician, No Primary Primary Care Provider Unavailable Care Physician, No Primary Referring Provider Un available Bhavesh STATIONARY ENGINEER REFRIGERATION-CKaylah Attending Provider Bhavesh MOHAN-CKaylah Referring Provider Poppy Wall Primary Care Provider Tammy Carcamo Attending Provider Unavailable Dr. Dain Mcgraw MD Attending Provider Poppy Wall Referring Provider Dr. Dain Mcgraw MD Referring Provider Bryn STATIONARY ENGINEER REFRIGERATION-CMansi Attending Provider Pham, Poppy Primary Care Unavailable Barkman, Kaylah Referring Unavailable Barkman, Kaylah Attending Unavailable Pham, Poppy Primary Care Unavailable Barkman, Kaylah Referring Unavailable Barkman, Kaylah Attending Unavailable Lucien, Dain Attending Unavailable Lucien, Dain Referring Unavailable Pham, Poppy Primary Care Unavailable Barkman, Kaylah Attending Unavailable Care Physician, No Primary Primary Care Unava ilable Barkman, Kaylah Referring Unavailable Barkman, Kaylah Attending Unavailable Care Physician, No Primary Primary Care Unava ilable Care Physician, No Primary Referring Unava ilable Lucien, Dain Attending Unavailable Barkman, Kaylah Referring Unavailable Pham, Poppy Primary Care Unavailable Pham, Poppy Referring Unavailable Barkman, Kaylah Attending Unavailable Pham, Poppy Referring Unavailable Pham, Poppy Primary Care Unavailable Barkman, Kaylah Attending Unavailable Tammy Carcamo Attending Unavailable Pham, Poppy Primary Care Unavailable Bryn STATIONARY ENGINEER REFRIGERATIONMansi Attending Unavailable Pham, Poppy Referring Unavailable Pham, Poppy Primary Care Unavailable Pham, Poppy Referring Unavailable Pham, Poppy Primary Care Unavailable Barkman, Kaylah Attending Unavailable Pham, Poppy Primary Care Unavailable Barkman, Kaylah Referring Unavailable Barkman, Kaylah Attending Unavailable Barkman, Kaylah Referring Unavailable Barkman, Kaylah Attending Unavailable Pham, Poppy Primary Care Unavailable Barkman, Kaylah Referring Unavailable Barkman, Kaylah Attending Unavailable Barkman STATIONARY ENGINEER REFRIGERATION-C, Kaylah Attending Physician Bhavesh STATIONARY ENGINEER REFRIGERATION-CKaylah Referring Provider Ankit STATIONARY ENGINEER REFRIGERATION-C, Poppy Primary Care Physician Dr. Dain Mcgraw MD Attending Physician Ankit STATIONARY ENGINEER REFRIGERATION-C, Poppy Referring Provider [id number] Bryn MOHAN-Mansi Valdes Attending Physician Allergies Allergy Classification Reported Allergen(s) Allergy Type Date of Onset Reaction(s) Facility (8 sources) Morphine Drug Allergy 08-08-2024 Vomiting [facility] Comment on above: vomiting blood (1 source) Morphine Drug Allergy 01-17-2025 [facility] Repository Medications Current Medications Medication Drug Class(es) Dates Sig (Normalized) Sig (Original) amoxicillin 875 mg oral tablet (1 source) Penicillin-class Antibacterial Start: 04-17-2022 End: 04-22-2022 amoxicillin 875 mg oral tablet Dose : 875 mg = 1 tab(s), Oral, BID, X 5 day(s), # 10 tab(s), 0 Refill(s), 04/22/22 3:10:00 EST Start Date: 04/17/22 Stop Date: 04/22/22 Status: Ordered hydrOXYzine pamoate 25 mg oral capsule (1 source) Antihistamine Start: 04-17-2022 End: 04-22-2022 Vistaril 25 mg oral capsule Dose : 25 mg = 1 cap(s), Oral, QID, X 5 day(s), # 20 cap(s), 0 Refill(s), 04/22/22 3:10:00 EST Start Date: 04/17/22 Stop Date: 04/22/22 Status: Ordered Melatonin (15 sources) Start: 04-17-2022 melatonin Dose : 3 mg =, qHS, 0 Refill(s) Start Date: 04/17/22 Status: Ordered Start: 04-14-2022 take 1 tablet by mouth at bedt bettina Melatonin 5 mg Tablet Active 5 mg PO AT BEDTIME April 14, 2022 1:00am Complies with drug therapy melatonin 5 mg O DT Take by mouth. 0 Active Comment on above: Take by mouth. Completed/Discontinued Medications Medication Drug Class(es) Dates Sig (Normalized) Sig (Original) busPIRone hydrochloride 5 mg oral tablet (7 sources) Start: 3 take 1 tablet by mouth three times daily as needed for anxiety busPIRone HCl - 5 MG Oral Tablet Take 1 tablet by mouth three times a day as needed for anxiety. Quantity: 90 Refills: 0 Ordered: 07-May-2022 Poppy Mars Start : 07-May-2022 Active chlorhexidine gluconate 1.2 mg/ml mouthwash (9 sources) Start: 1 End: 1 Chlorhexidine Gluconate 473 ML mouthwash Discontinued 473 mL MM TWICE A DAY 1 30 0 April 25, 2020 1:00am May 24, 2020 1:00am May 25, 2020 1:03am ergocalciferol 1.25 mg oral capsule (5 sources) Provitamin D2 Compound Start: 3 take 1 capsule by mouth every week Vitamin D (Ergocalciferol) 1.25 MG (04004 UT) Oral Capsule TAKE 1 CAPSULE WEEKLY. Quantity: 8 Refills: 1 Ordered: 17-May-2022 Ankit FLOYD-Poppy HOLDER Start : 17-May-2022 Active escitalopram 5 mg oral tablet (4 sources) Serotonin Reuptake Inhibitor Start: 3 take 1 tablet by mouth once daily Escitalopram Oxalate 5 MG Oral Tablet TAKE 1 TABLET DAILY. Quantity: 30 Refills: 0 Ordered: 24-May-2022 Poppy Mars Start : 24-May-2022 Active Ethinyl Estradiol / norgestimate (1 source) Progestin, Estrogen Start: 4 take 1 tablet by mouth once daily norgestimate 0.25 mg-ethinyl estradiol 35 mcg (SPRINTEC) 0.25-35 mg-mcg per tablet Take 1 tablet by mouth once daily. 28 tablet 11 05/19/2023 Active Comment on above: Take 1 tablet by antoinette th once daily. meclizine hydrochloride 25 mg oral tablet (9 sources) Antiemetic Start: 2 End: 5 take 1 tablet by mouth every eight hours as needed for dizziness Meclizine 25 mg tablet Discontinued 25 mg PO EVERY 8 HOURS NEEDED as needed for Dizziness 20 0 April 14, 2022 10:15am August 08, 2024 1:58pm medroxyPROGESTERone acetate 10 mg oral tablet (1 source) Progestin Start: 1 End: 3 medroxyPROGESTERone (PROVERA) 10 mg tablet Indications: PCOS (polycystic ovarian syndrome) , Secondary amenorrhea Take 1 tablet by mouth once daily for 10 days. Each month then stop 30 tablet 3 10/22/2020 04/27/2022 Discontinued Comment on above: Take 1 tablet by antoinette th once daily for 10 days. Each month then stop metoclopramide 10 mg oral tablet (9 sources) Dopamine-2 Receptor Antagonist Start: 2 End: 5 take 1 tablet by mouth every six hours as needed for nausea and vomiting Metoclopramide Hcl 10 mg tablet Discontinued 10 mg PO EVERY 6 HOURS as needed for nausea and vomiting 12 0 April 14, 2022 10:15am August 08, 2024 1:58pm MULTI-VITAMIN ORAL (4 sources) take 1 tablet by mouth once daily MULTI-VITAMIN ORAL Take 1 tablet by mouth once daily. 0 Active Comment on above: Take 1 tablet by antoinette th once daily. Multi-Vitamins TABS (7 sources) Multi-Vitamins T ABS Quantity: 0 Refills: 0 Ordered: 07-May-2022 DO Active norethindrone acetate 5 mg oral tablet (12 sources) Start: End: take 1 tablet by mouth once daily Norethindrone Acetate 5 mg tablet Discontinued 5 mg PO daily 90 4 September 07, 2024 11:15am January 17, 2025 1:19pm Start: 08-09-2024 End: 09-07-2024 Norethindrone Acetate 5 mg t ablet Discontinued 5 mg PO .COMPLEX 45 0 August 09, 2024 12:00am September 07, 2024 11:15am 5 mg orally TID until bleeding stops for 24hrs then BID to finish RX; predniSONE 10 mg oral tablet (2 sources) Start: 04-26-2022 End: 05-05-2022 predniSONE (DELTASONE) 10 mg tablet Indications: Vertigo , Tinnitus aurium, right Take 4 tabs daily for 3 days, then 2 tabs daily for 3 days, then 1 tab daily for 3 days with food. 21 tablet 0 04/26/2022 05/04/2022 Discontinued (Course of therapy completed) Comment on above: Take 4 tabs daily fo r 3 days, then 2 tabs daily for 3 days, then 1 tab daily for 3 days with food. Ngfiebdo-Bo-Kbp-Fe -FA ( VITAMIN) tab (1 source) Start: 10-22-2020 End: 04-27-2022 take 1 tablet by mouth once daily Yudekgbz-Zw-Xci-Fe- FA ( VITAMIN) tab Take 1 tablet by mouth once daily. 30 tablet 11 10/22/2020 04/27/2022 Discontinued Comment on above: Take 1 tablet by antoinette th once daily. sertraline 25 mg oral tablet (3 sources) Serotonin Reuptake Inhibitor Start: 05-07-2022 take 1 tablet by mouth once daily Sertraline HCl - 25 MG Oral Tablet take 1 tablet by mouth once daily Quantity: 30 Refills: 0 Ordered: 07-May-2022 Poppy Mars Start : 07-May-2022 Active SUMAtriptan 50 mg oral tablet (5 sources) Serotonin-1b and Serotonin-1d Receptor Agonist Start: 05-04-2022 End: 05-04-2022 SUMAtriptan (IMITREX) 50 mg tablet Take one tablet by mouth at the onset of the headache. If no improvement in 2 hours take one more tablet. No more than 2 tablets in 24 hours 4 tablet 0 05/04/2022 Active Comment on above: Take one tablet by m outh at the onset of the headache. If no improvement in 2 hours take one more tablet. No more than 2 tablets in 24 hours Problems Active Problems Problem Classification Problem Date Documented Da te Episodic/Chronic Administrative/social admission (20 sources) Patient encounter status; Translations: [Encounter for pre-employment examination] Episodic Anxiety disorders (14 sources) Anxiety; Translations: [Anxiety disorder, unspecified] Onset: 05-26-2018 Chronic Comment on above: 05/07/22: GAD7 severe anxiety; Blindness and vision defects (1 source) Blurring of visual image; Translations: [Other visual disturbances] Episodic Conditions associated with dizziness or vertigo (20 sources) Dizziness; Translations: [Dizziness and giddiness] Episodic Deficiency and other anemia (9 sources) Anemia due to blood loss; Translations: [Iron deficiency anemia secondary to blood loss (chronic)] 11-25-2018 Chronic Deficiency and other anemia (19 sources) Iron deficiency anemia due to blood loss; Translations: [Iron deficiency anemia secondary to blood loss (chronic)] 08-21-2024 Chronic Deficiency and other anemia (2 sources) Iron deficiency anemia secondary to blood loss (chronic); Translations: [Iron deficiency anemia secondary to blood loss (chronic)] Onset: 12-04-2024 Chronic Deficiency and other anemia (9 sources) Microcytic anemia; Translations: [Iron deficiency anemia, unspecified] 11-25-2018 Episodic Disorders of teeth and jaw (9 sources) Gingivitis; Translations: [Chronic gingivitis, plaque induced] 04-26-2020 Chronic Disorders of teeth and jaw (9 sources) Toothache; Translations: [Other specified disorders of teeth and supporting structures] 01-27-2018 Episodic Headache; including migraine (1 source) Headache; Translations: [Left-sided headache] Episodic Menstrual disorders (7 sources) Dysmenorrhea; Translations: [Dysmenorrhea, unspecified] Onset: 11-29-2018 11-29-2018 Chronic Mood disorders (7 sources) Depressive disorder; Translations: [Depressive disorder, not elsewhere classified] Chronic Comment on above: 05/07/22: PHQ9 severe depression; Nutritional deficiencies (5 sources) Vitamin D deficiency; Translations: [Unspecified vitamin D deficiency] Chronic Other ear and sense organ disorders (1 source) Subjective tinnitus of right ear; Translations: [Tinnitus, right ear] Episodic Other endocrine disorders (20 sources) Polycystic ovary syndrome; Translations: [Polycystic ovaries] 05-19-2023 Chronic Other endocrine disorders (1 source) Polycystic ovarian syndrome; Translations: [Polycystic ovarian syndrome] Onset: 11-12-2024 Chronic Other female genital disorders (9 sources) Vaginal bleeding; Translations: [Abnormal uterine and vaginal bleeding, unspecified] 11-25-2018 Chronic Other female genital disorders (19 sources) Abnormal uterine bleeding; Translations: [Abnormal uterine and vaginal bleeding, unspecified] 05-19-2023 Chronic Other female genital disorders (2 sources) Abnormal uterine and vaginal bleeding, unspecified; Translations: [Abnormal uterine bleeding (AUB)] Onset: 05-19-2023 Chronic Other hematologic conditions (1 source) History of anemia; Translations: [Personal history of diseases of the blood and blood-forming organs and certain disorders involving the immune mechanism] 08-09-2024 Episodic Other nervous system disorders (1 source) Numbness and tingling sensation of skin; Translations: [Anesthesia of skin] Episodic Other nutritional; endocrine; and metabolic disorders (7 sources) Overweight in adulthood with body mass index of 25 or more but less than 30; Translations: [Body Mass Index 27.0-27.9, adult] Episodic Other upper respiratory infections (18 sources) Viral upper respiratory tract infection; Translations: [Acute upper respiratory infection, unspecified] 04-22-2022 Episodic Unclassified (9 sources) 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 Unclassified (9 sources) No history of clinical finding in subject; Translations: [No significant past medical history] 11-24-2018 Past or Other Problems Problem Classification Problem Date Documented Da te Episodic/Chronic Deficiency and other anemia (1 source) Anemia, unspecified; Translations: [Anemia, unspecified] Onset: 09-19-2024 Episodic Genitourinary symptoms and ill-defined conditions (5 sources) Increased frequency of urination; Translations: [Frequency of micturition] Onset: 05-26-2018 05-26-2018 Episodic Other hematologic conditions (1 source) Personal history of diseases of the blood and blood-forming organs and certain disorders involving the immune mechanism; Translations: [Personal history of diseases of the blood and blood-forming organs and certain disorders involving the immune mechanism] Onset: 08-15-2024 Episodic Ovarian cyst (5 sources) Hemorrhagic cyst of ovary; Translations: [Unspecified ovarian cyst, unspecified side] Onset: 10-17-2020 10-17-2020 Episodic Results Test Name Value Interpretation Reference Range Facility Network Internship Office Visit Reporton 01-17-2025 Network Internship Office Visit Report [facility] [address], [address] [place] [address] OFFICE VISIT Date of Service: 01/17/25 MR#: [id number] Acct: [id number] Name: FARA WALDEN Rep #: [id number] : 2000 Provider: SISI Miller Age/Sex: 24/F Location: [facility] [place] Status: Signed Intake Vital Signs 12/04/24 14:06 01/17/25 13:18 Height 5 ft 2 in 5 ft 2 in Weight: 140 lb 7 oz 141 lb 5 oz BMI 25.7 25.8 BP 98/69 111/72 Blood Pressure Location Lt brachial Position Sitting Respiration 18 Pulse 77 Pulse Source Monitor Temp 98.9 F Temperature Source Temporal Artery Pulse Oximetry (%) 100 Oxygen Delivery Method room air Intake Visit Reasons: DISCUSS BC Cyber Defense Forensics Analyst Required: No Is patient in pain?: No Allergies morphine Allergy (Verified 01/17/25 13:15) Vomiting Medications ???Medication ???Instructions ???Recorded ???Confirmed ???Type melatonin 5 mg tablet 5 mg PO QHS 04/14/22 01/17/25 Hist ory Is last menstrual period known: No Post menopausal: No Patient : No : No Control Method: [facility] History Iron deficiency anemia due to chronic blood loss PCOS (polycystic ovarian syndrome) 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, pre-employment Family History Mother Age: 64 Anxiety Arthritis Father Age: 53 Alcoholism Arthritis Hypertension Brother Age: 29 Bowel disease Anxiety Asthma Social History adopted: No household members: significant other number of children: 0 current occupational status: unemployed current occupational exposures/hazards: No pets and animals: Yes (2 cats 2 dogs) leisure activities: exercise, music, fishing and reading history of recent travel: No sexually active: Yes Smoking Status: Never smoker Electronic Cigarette Use: with nicotine second hand exposure: Yes (Parents) quit status: not considering quitting alcohol intake: never substance use type: does not use diet: other well-balanced diet: about half the time caffeine: Yes Type: coffee eating out: rarely or never during the past year weight has: remained stable what type of physical activity do you participate in: walking frequency: daily duration: 45-60 minutes/day briana/yarsani: none seatbelt use: always do you feel safe at home: Yes additional social history: 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 She has a history of PCOS; previously noted to have heavy menses and irregular. She and her fiance are attempting . Has not used protection in 8 years. Has not had fertility work up completed thus far. Her LMP period was a "couple weeks ago" with spotting. Female Reproductive History Last Menstrual Period: 12/04/24 Cycle Length: 21-35 Questions: metrorrhagia: No, sexually active: Yes, dyspareunia: No and PCB: No History 0 Elective abortions Hx Para 0 Spontaneous abortions Hx # Term Pregnancies Ectopic pregnancies Hx # Pregnancies Multiple births # of living children 0 ROS Const Constitutional: Reports system reviewed and no additional complaints, except as documented Cardio Card: Reports system reviewed and no additional complaints, except as documented Resp Resp: Reports system reviewed and no additional complaints, except as documented GI GI: Reports system reviewed and no additional complaints, except as documented : Reports system reviewed and no additional complaints, except as documented Psych Psych: Reports system reviewed and no additional complaints, except as documented Exam Const General: cooperative, healthy appearing, comfortable, no acute distress and well developed Orientation: alert, awake and oriented x3 HENMT Head: normal to inspection Eyes General: appearance normal, both eyes and all related structures Neck Neck: normal visual inspection Resp Effort Inspection: normal respiratory effort and able to speak in complete sentences Skin General: no rashes or lesions noted Neuro General: patient alert, patient awake, patient oriented x3 and moves all extremities Psych Affect: normal affect Speech and Movement: speech and movement normal Coding Level of Care Code Established Pt Off vis,est,level 3 Patient Type Established Diagnoses PCOS (polycystic ovarian syndrome) E28.2 Iron deficiency anemia due to chronic blood loss D50.0 Infertility Assessment and Plan Assessment and Plan (1) PCOS (polycystic ovarian syndrome): Status: Acute Plan: Ultrasound results consistent with this. Will order day 3 an (more content not included)... Normal [facility] Absolute lymphocyte countOrd ered By[facility] 12-[facility]-2024 Lymphocytes Auto (Unsp spec) [#/Vol] 0.81 10*3/uL Low 0.83-4.51 [facility] Absolute neutrophil countOrd ered By: [facility] on 12-04-2024 Neutrophils (Bld) [#/Vol] 2.6 10*3/uL 2.0-7.7 [facility] Automated lymphocyte count a s percentage of total leukocytesOrdered By: Dain Mcgraw on 12-04-2024 Lymphocytes/100 WBC Auto (Unsp spec) 21.1 % 19- [facility] Basophil percentageOrdered B y: Dain Mcgraw on 12-04-2024 Basophils/100 WBC (Bld) 0.3 % 0-1 [facility] CBC W/Diff, Automatedon 11-16 Absolute Lymph 0.81 X10 3/uL Low 0.83-4.51 [facility] Comment on above: Performed By: #### L 100.9950, L503.6030, L100.0100, L503.6550 #### [facility] [address] [place], [address] Absolute Neut 2.6 X10 3/uL Normal 2.0-7.7 [facility] Comment on above: Performed By: #### L 100.9950, L503.6030, L100.0100, L503.6550 #### [facility] [address] [place], [address] Basophils/100 WBC (Bld) 0.3 % Normal 0-1 [facility] Comment on above: Performed By: #### L 100.9950, L503.6030, L100.0100, L503.6550 #### [facility] [address] [place], [address] Eosinophils/100 WBC (Bld) 0.5 % Normal 0-5 [facility] Comment on above: Performed By: #### L 100.9950, L503.6030, L100.0100, L503.6550 #### [facility] [address] [place], [address] Erythrocyte distribution width (RBC) [Ratio] 14.5 % Normal 11.6-14.6 [facility] Comment on above: Performed By: #### L 100.9950, L503.6030, L100.0100, L503.6550 #### [facility] [address] [place] [place], [address] Hematocrit (Bld) [Volume fraction] 35.9 % Low 37-47 [facility] Comment on above: Performed By: #### L 100.9950, L503.6030, L100.0100, L503.6550 #### [facility] [address] [place], [address] Hemoglobin (Bld) [Mass/Vol] 11.9 g/dL Low 12.0-15.0 [facility] Comment on above: Performed By: #### L 100.9950, L503.6030, L100.0100, L503.6550 #### [facility] [address] [place], [address] IG% 0.300 Normal 0.0-0.9 [facility] Comment on above: Result Comment: IG% - Immature Granulocytes (promyelocytes, myelocytes and metamyelocytes) > 1% indicates that a LEFT SHIFT is Present. Performed By: #### L 100.9950, L503.6030, L100.0100, L503.6550 #### [facility] [address] [place], [address] Lymphocytes/100 WBC (Bld) 21.1 % Normal 19-41 [facility] Comment on above: Performed By: #### L 100.9950, L503.6030, L100.0100, L503.6550 #### [facility] [address] [place], [address] MCH (RBC) [Entitic mass] 29.2 pg Normal 27.0-32.0 [facility] Comment on above: Performed By: #### L 100.9950, L503.6030, L100.0100, L503.6550 #### [facility] [address] [place], [address] MCHC (RBC) [Mass/Vol] 33.1 g/dL Normal 32-36 [facility] Comment on above: Performed By: #### L 100.9950, L503.6030, L100.0100, L503.6550 #### [facility] [address] [place], [address] MCV (RBC) [Entitic vol] 88.2 fL Normal 81-99 [facility] Comment on above: Performed By: #### L 100.9950, L503.6030, L100.0100, L503.6550 #### [facility] [address] [place], [address] Monocytes/100 WBC (Bld) 9.4 % Normal 0-10 [facility] Comment on above: Performed By: #### L 100.9950, L503.6030, L100.0100, L503.6550 #### [facility] [address] [place], [address] Neutrophils/100 WBC (Bld) 68.4 % Normal 47-70 [facility] Comment on above: Performed By: #### L 100.9950, L503.6030, L100.0100, L503.6550 #### [facility] [address] [place], [address] Nucleated RBC (Bld) [#/Vol] 0 10*3/uL Normal 0-5 [facility] Comment on above: Performed By: #### L 100.9950, L503.6030, L100.0100, L503.6550 #### [facility] [address] [place], [address] Platelet mean volume (Bld) [Entitic vol] 9.3 fL Normal 6.2-12.0 [facility] Comment on above: Performed By: #### L 100.9950, L503.6030, L100.0100, L503.6550 #### [facility] [address] [place], [address] Platelets (Bld) [#/Vol] 216 10*3/uL Normal 150-450 [facility] Comment on above: Performed By: #### L 100.9950, L503.6030, L100.0100, L503.6550 #### [facility] [address] [place], [address] RBC (Bld) [#/Vol] 4.07 10*6/uL Low 4.2-5.4 [facility] Comment on above: Performed By: #### L 100.9950, L503.6030, L100.0100, L503.6550 #### [facility] [address] [place], [place], [address] RDW SD 45.1 fl High 35.1-43.9 [facility] Comment on above: Performed By: #### L 100.9950, L503.6030, L100.0100, L503.6550 #### [facility] [address] [place], [address] WBC (Bld) [#/Vol] 3.8 10*3/uL Low 4.4-11.0 [facility] Comment on above: Performed By: #### L 100.9950, L503.6030, L100.0100, L503.6550 #### [facility] [address] [place], [address] Eosinophil percentageOrdered By: Dain Mcgraw on 12-04-2024 Eosinophils/100 WBC (Bld) 0.5 % 0-5 [facility] Erythrocyte distribution wid th ratioOrdered By: Dain Mcgraw on 12-04-2024 Erythrocyte distribution width (RBC) [Ratio] 14.5 % 11.6-14.6 [facility] Erythrocyte distribution wid th standard deviationOrdered By: Dain Mcgraw on 12-04-2024 Erythrocyte distribution width (RBC) [Ratio] 45.1 fl High 35.1-43.9 [facility] Ferritinon 12-04-2024 Ferritin [Mass/Vol] 14 ng/mL Low 22-378 [facility] Comment on above: Performed By: #### L 100.9950, L503.6030, L100.0100, L503.6550 ####[facility] [address] [place], [address] Hematocrit Auto (Bld) [Volum e fraction]Ordered By: Dain Mcgraw on 08-19-2025 Hematocrit (Bld) [Volume fraction] 35.9 % Low 37-47 [facility] Hemoglobin measurementOrdere d By: Dain Mcgraw on 12-04-2024 Hemoglobin (Bld) [Mass/Vol] 11.9 g/dL Low 12.0-15.0 [facility] Immature granulocytes/100 WB C Auto (Bld)Ordered By: Dain Mcgraw on 12-04-2024 Immature granulocytes/100 WBC (Bld) 0.300 % 0.0-0.9 [facility] Comment on above: IG% - Immature Granu locytes (promyelocytes, myelocytes and metamyelocytes) > 1% indicates that a LEFT SHIFT is Present. Iron measurement (mass/mass) Ordered By: Dain Mcgraw on 12-04-2024 Iron (Unsp spec) [Mass/Mass] 45 ug/dL Low 50-170 [facility] Iron+Iron Binding Capacityon 12-04-2024 Iron [Mass/Vol] 45 ug/dL Low 50-170 [facility] Comment on above: Performed By: #### L 100.9950, L503.6030, L100.0100, L503.6550 ####[facility] [address] [place], [address] IRON SATURATION 14.0 Normal 13-59 [facility] Comment on above: Performed By: #### L 100.9950, L503.6030, L100.0100, L503.6550 ####[facility] [address] [place], [address] TIBC 321 ug/dL Normal 250-450 [facility] Comment on above: Performed By: #### L 100.9950, L503.6030, L100.0100, L503.6550 ####[facility] [address] [facility] [address] UIBC 276 ug/dL Normal 228-428 [facility] Comment on above: Performed By: #### L 100.9950, L503.6030, L100.0100, L503.6550 ####[facility] [address] [place], [address] MCV (mean corpuscular volume ) determinationOrdered By: Dain Mcgraw on 12-04-2024 MCV (RBC) [Entitic vol] 88.2 fL 81-99 [facility] Mean corpuscular hemoglobin (MCH) determinationOrdered By: Dain Mcgraw on 12-04-2024 MCH (RBC) [Entitic mass] 29.2 pg 27.0-32.0 [facility] Mean corpuscular hemoglobin concentration (MCHC) determinationOrdered By: [facility] on 12-04-2024 MCHC (RBC) [Mass/Vol] 33.1 g/dL 32-36 [facility] Mean platelet volume determi nationOrdered By: Dain Mcgraw on 12-04-2024 Platelet mean volume (Bld) [Entitic vol] 9.3 fL 6.2-12.0 [facility] Monocyte percentageOrdered B y: Dain Mcgraw on 12-04-2024 Monocytes/100 WBC (Bld) 9.4 % 0-10 [facility] Neutrophil percentageOrdered By: [facility] Lucien on 12-04-2024 Neutrophils/100 WBC (Bld) 68.4 % 47-70 [facility] No Panel InformationOrdered By: Dain Mcgraw on 12-04-2024 Unsaturated Iron Binding Capacity 276 ug/dL 228-428 [facility] Nucleated red blood cell per centageOrdered By: [facility] on 12-04-2024 Nucleated RBC/100 WBC (Bld) [Ratio] 0 % 0-5 [facility] Oncology Visit Reporton 11-16 Oncology Visit Report [facility] [address] [place] [address] OFFICE VISIT Date of Service: 12/04/24 1404 MR#: [id number] Acct: [id number] Name: FARA WALDEN Rep #: [id number] : 2000 From: Mansi Clemente NP STATIONARY ENGINEER REFRIGERATION -C Age/Sex: 24/F Location: [facility] Status: Signed HPI Subjective Date of Service 12/04/24 Chief Complaint Iron deficiency anemia History of Present Illness 24-year-old female with chronic recurrent iron deficiency anemia due to heavy menstrual losses. In the past she has taken oral iron with response to her labs again when she stops taking iron. Venofer 300 mg weekly x 3 doses given 08/18/24-09/12/24. Interval History The patient is presenting to clinic for a routine 3 month follow up. Confirms good adherence and tolerance to p.o. iron daily (in a multivitamin with vitamin C). Specifically denies any GI upset, constipation, and hematochezia/melena. Reports menses remains heavy 3 to 4 days of 7. At this time does not have a follow-up with 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. [facility] Medical History Iron deficiency anemia due to chronic blood loss PCOS (polycystic ovarian syndrome) 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, pre-employment Family History Mother Age: 64 Anxiety Arthritis Father Age: 53 Alcoholism Arthritis Hypertension Brother Age: 29 Bowel disease Anxiety Asthma Social History adopted: No household members: significant other number of children: 0 current occupational status: unemployed current occupational exposures/hazards: No pets and animals: Yes (2 cats 2 dogs) leisure activities: exercise, music, fishing and reading history of recent travel: No sexually active: Yes Smoking Status: Never smoker Electronic Cigarette Use: with nicotine second hand exposure: Yes (Parents) quit status: not considering quitting alcohol intake: never substance use type: does not use diet: other well-balanced diet: about half the time caffeine: Yes Type: coffee eating out: rarely or never during the past year weight has: remained stable what type of physical activity do you participate in: walking frequency: daily duration: 45-60 minutes/day briana/yarsani: none seatbelt use: always do you feel safe at home: Yes additional social history: 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 ROS ROS Narrative Negative except as documented in the interval HPI Intake Vital Signs 08/21/24 15:24 09/12/24 13:16 12/04/24 14:06 Height 5 ft 2 in 5 ft 2 in 5 ft 2 in Weight: 140 lb 7 oz BMI 25.7 BP 98/69 Blood Pressure Location Lt brachial Position Sitting Respiration 18 Pulse 77 Pulse Source Monitor Temp 98.9 F Temperature Source Temporal Artery Pulse Oximetry (%) 100 Oxygen Delivery Method room air Intake Accompanied by: Self Is patient in pain?: No Allergies morphine Allergy (Verified 12/04/24 14:16) Vomiting Medications ???Medication ???Instructions ???Recorded ???Confirmed ???Type melatonin 5 mg tablet 5 mg PO QHS 04/14/22 12/04/24 Hist ory norethindrone acetate 5 mg tablet 5 mg PO QDAY #90 tabs 09/07/24 Rx Central Venous Access Central Venous Access: No Laboratory Tests 12/04/24 13:37 WBC 3.8 L Hgb 11.9 L Hct 35.9 L MCV 88.2 Plt Count 216 Iron 45 L TIBC 321 Iron Saturation 14.0 Unsaturated IBC 276 Exam Physical Exam Const alert, oriented x3, no apparent distress and healthy appearing General Appearance: cooperative and comfortable Resp normal respiratory effort and clear to auscultation bilaterally Cardio regular rate, regular rhythm, S1 normal heart sound and S2 normal heart sound GI normal to inspection, nondistended, normoactive bowel sounds and non-tender Psych mental status grossly normal Attitude: calm and engaged Coding Level of Care Code Off vis,est,level 4 Exam Problem Focused Diagnoses Iron deficiency anemia due to chronic blood loss D50.0 Assessment and Plan Assessment and Plan (1) Iron deficiency anemia due to chronic blood loss: Status: Chronic Orders: Orders CBC W/Diff, Automated 6 Months D50.0 - Iron deficiency anemia secondary to blood loss (chronic) Basic Metabolic Profile (BMP) 6 Months D50.0 - Iron deficiency anemia secondary to blood loss (chronic) KIKI + Protein Elect, Serum 6 Months D50.0 - Iron deficiency anemia secondary to blood loss (chronic) Ferritin 6 Months D50.0 - Iron deficiency anemia secondary to blood loss (chronic) Plan 24-year-old female with chronic recurrent iron deficiency anemia from heavy menstrual loss. She does respond to oral iron to relapse when she comes off oral iron. Recommendations (more content not included)... Normal [facility] Platelet countOrdered By: Azra Mcgraw on 12-04-2024 Platelets (Bld) [#/Vol] 216 10*3/uL 150-450 [facility] RBC Auto (Bld) [#/Vol]Ordere d By: Dain Mcgraw on 12-04-2024 RBC (Bld) [#/Vol] 4.07 10*6/uL Low 4.2-5.4 [facility] Retic Panelon 12-04-2024 IM RET FRACTION 5.40 Normal 3.00-15.90 [facility] Comment on above: Performed By: #### L 100.9950, L503.6030, L100.0100, L503.6550 #### [facility] [address] [place], [address] RET-HE 32.1 pg Normal 30-35 [facility] Comment on above: Performed By: #### L 100.9950, L503.6030, L100.0100, L503.6550 #### [facility] [address] [place], [address] Retic Count 1.00 Normal 0.5-1.5 [facility] Comment on above: Performed By: #### L 100.9950, L503.6030, L100.0100, L503.6550 #### [facility] [address] [place], [address] Reticulocyte hemoglobin equi valent (RET-He) measurementOrdered By: Dain Mcgraw on 12-04-2024 Hemoglobin (Reticulocytes) [Entitic mass] 32.1 pg 30-35 [facility] Reticulocytes Auto (Bld) [#/ Vol]Ordered By: Dain Mcgraw on 12-04-2024 Reticulocytes/100 RBC (Bld) 1.00 % 0.5-1.5 [facility] Serum or plasma ferritin stephie surement (mass/volume)Ordered By: Dain Mcgraw on 12-04-2024 Ferritin [Mass/Vol] 14 ng/mL Low 22-378 [facility] Serum or plasma iron saturat ion measurement (mass fraction)Ordered By: Dain Mcgraw on 12-04-2024 Iron saturation [Mass fraction] 14.0 % 13-59 [facility] White blood cell (WBC) count Ordered By: Dain Evansмария on 12-04-2024 WBC (Bld) [#/Vol] 3.8 10*3/uL Low 4.4-11.0 [facility] Pelvic w/ Transvaginalon Pelvic w/ Transvaginal [facility] [address] [place], [place] [address] Pelvic w/ Transvaginal MR#: [id number] Acct: [id number] Name: FARA WALDEN Rep #: [id number] : 2000 F 24 From: Jag alexis MD PCP: SISI Erickson Status: REG CLI Study: Pelvic w/ Transvaginal Date of Exam: 10/01/24 Exam# [id number] Ordering Dr: Kaylah Ospina PROCEDURE: PELVIC W/ TRANSVAGINAL REASON FOR EXAM: AUB TECHNIQUE: PELVIC W/ TRANSVAGINAL COMPARISON: Prior study dated August 13, 2024. FINDINGS: LMP: September 25, 2024 Measurements: Uterus: 8.2 cm x 6.7 cm x 4.1 cm with a volume of 117.73 mL Endometrial Thickness: 5 mm. Trace amount of endometrial fluid. Right Ovary: 3.6 cm x 2.6 cm x 2.4 cm with a volume of 14.75 mL. Left Ovary: 3.8 cm x 2.3 cm x 2.3 cm with a volume of 8.65 mL. TRANSABDOMINAL: Uterus: Normal size, myometrial echotexture, and contour. Endometrium: Unremarkable. Right ovary: Small follicles are seen along the peripheral aspect of the right ovary. Left ovary: Small follicles are seen in the peripheral aspect of the left ovary. Other: No large pelvic mass identified. Transvaginal sonography was performed to better visualize the endometrium. TRANSVAGINAL: Uterus: Retroverted. Endometrium: Normal echotexture. Right ovary: Small follicles are seen in the peripheral aspect of the right ovary. Left ovary: Small follicles are seen in the peripheral aspect of the left ovary. Other adnexal findings: None. Cul-de-sac: No free intraperitoneal fluid identified. Tenderness: No tenderness US/Pelvic w/ Transvaginal IMPRESSION: Stable examination. Findings suggestive of polycystic ovary. Reading Location: [place] [address] CC: SISI Ospina; SISI Pham Brake Liner: Signed Normal [facility] Network Internship Office Visit Reporton 09-05-2024 Network Internship Office Visit Report [facility] [address], [address] [place] [address] OFFICE VISIT Date of Service: 09/05/24 MR#: [id number] Acct: [id number] Name: FARA WALDEN Rep #: [id number] : 2000 Provider: SISI Miller Age/Sex: 24/F Location: [facility] Status: Signed Intake Vital Signs 08/08/24 14:53 08/28/24 13:13 09/04/24 13:08 09/05/24 09:34 Height 5 ft 2 in 5 ft 2 in 5 ft 2 in 5 ft 2 in Weight: 144 lb 4 oz BMI 26.4 BP 132/75 H Intake Visit Reasons: 4w fu per CB Cyber Defense Forensics Analyst Required: No Is patient in pain?: No Allergies morphine Allergy (Verified 09/05/24 09:36) Vomiting Medications ???Medication ???Instructions ???Recorded ???Confirmed ???Type melatonin 5 mg tablet 5 mg PO QHS 04/14/22 09/05/24 Hist ory norethindrone acetate 5 mg tablet 5 mg PO .COMPLEX #45 tabs 5 09/05/24 Rx Post menopausal: No Patient : No : [facility] History Iron deficiency anemia due to chronic blood loss PCOS (polycystic ovarian syndrome) 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, pre-employment Family History Mother Age: 64 Anxiety Arthritis Father Age: 52 Alcoholism Arthritis Hypertension Brother Age: 29 Bowel disease Anxiety Asthma Social History adopted: No household members: significant other number of children: 0 current occupational status: unemployed current occupational exposures/hazards: No pets and animals: Yes (2 cats 2 dogs) leisure activities: exercise, music, fishing and reading history of recent travel: No sexually active: Yes Smoking Status: Never smoker Electronic Cigarette Use: with nicotine second hand exposure: Yes (Parents) quit status: not considering quitting alcohol intake: never substance use type: does not use diet: other well-balanced diet: about half the time caffeine: Yes Type: coffee eating out: rarely or never during the past year weight has: remained stable what type of physical activity do you participate in: walking frequency: daily duration: 45-60 minutes/day briana/yarsani: none seatbelt use: always do you feel safe at home: Yes additional social history: 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 Her bleeding has stopped--she is on her last day of progesterone; she is feeling much better as well. She has had 2 iron infusions thus far and scheduled for her 3rd one. Has tolerated these well. She was also seen by Dr. Fleming--he recommended iron supplementation for presumed iron deficiency d/t menses. Will start this after she completes her infusion. History 0 Elective abortions Hx Para 0 Spontaneous abortions Hx # Term Pregnancies Ectopic pregnancies Hx # Pregnancies Multiple births # of living children 0 ROS Const Constitutional: Denies chills, fatigue, fever(s), headache(s) or weight loss Eyes Eyes: Denies change in vision ENT ENT: Denies dizziness Cardio Card: Denies chest pain or palpitations Resp Resp: Denies cough or dyspnea GI GI: Denies abdominal pain, constipation or nausea : Denies pelvic pain, vaginal discharge, vaginal dryness, vaginal odor or vaginal pruritus Neuro Neuro: Denies dizziness Exam Const General: cooperative, healthy appearing, comfortable, no acute distress, well groomed and well hydrated Nutritional Appearance: well nourished Orientation: alert, awake and oriented x3 HENMT Head: normal to inspection and normocephalic Ears: hearing grossly normal bilaterally and external ears normal Nose: external nose normal Face and sinus: normal facial exam Eyes General: appearance normal, both eyes and all related structures Resp Effort Inspection: normal respiratory effort, able to speak in complete sentences and symmetric chest movement Skin General: no rashes or lesions noted Neuro General: patient alert, patient awake, patient oriented x3 and moves all extremities Psych Appearance: grossly normal Mental Status: mental status grossly normal Affect: normal affect Speech and Movement: speech and movement normal Attitude: cooperative Coding Level of Care Code Established Pt Off vis,est,level 3 Patient Type Established Diagnoses Abnormal uterine bleeding N93.9 PCOS (polycystic ovarian syndrome) E28.2 Iron deficiency anemia due to chronic blood loss D50.0 Assessment and Plan Assessment and Plan (1) Abnormal uterine bleeding: Status: Acute Plan: recheck ultrasound ensure lining thins--order previously placed. Patient to call in 2 weeks with update of bleed or no bleed. Track menses. (more content not included)... Normal [facility] Oncology Visit Reporton Oncology Visit Report [facility] [place] [address] OFFICE VISIT Date of Service: 08/21/24 1524 MR#: [id number] Acct: [id number] Name: FARA WALDEN Rep #: [id number] : 2000 From: Dain Mcgraw MD Age/Sex: 24/F [place] [facility] [place]: Signed HPI Subjective Date of Service 08/21/24 Chief Complaint Anemia History of Present Illness 24-year-old female with chronic recurrent iron deficiency anemia due to heavy menstrual losses. In the past she has taken oral iron with response to her labs again when she stops taking iron. [facility] Medical History (Updated 08/21/24 @ 15:[address] Dain Mcgraw MD) Iron deficiency anemia due to chronic blood loss PCOS (polycystic ovarian syndrome) 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, pre-employment Family History Mother Age: 64 Anxiety Arthritis Father Age: 52 Alcoholism Arthritis Hypertension Brother Age: 29 Bowel disease Anxiety Asthma Social History adopted: No household members: significant other number of children: 0 current occupational status: unemployed current occupational exposures/hazards: No pets and animals: Yes (2 cats 2 dogs) leisure activities: exercise, music, fishing and reading history of recent travel: No sexually active: Yes Smoking Status: Never smoker Electronic Cigarette Use: with nicotine second hand exposure: Yes (Parents) quit status: not considering quitting alcohol intake: never substance use type: does not use diet: other well-balanced diet: about half the time caffeine: Yes Type: coffee eating out: rarely or never during the past year weight has: remained stable what type of physical activity do you participate in: walking frequency: daily duration: 45-60 minutes/day briana/yarsani: none seatbelt use: always do you feel safe at home: Yes 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 Constitutional Constitutional: Reports systems reviewed and no addt'l complaints, except as documented Eyes Eyes: Reports systems reviewed and no addt'l complaints, except as documented ENT HEENT: Reports systems reviewed and no addt'l complaints, except as documented; Denies bleeding gums or epistaxis Cardiovascular Cardiovascular: Reports systems reviewed and no addt'l complaints, except as documented Respiratory/Chest Respiratory/Chest: Reports systems reviewed and no addt'l complaints, except as documented Gastrointestinal Gastrointestinal: Reports systems reviewed and no addt'l complaints, except as documented; Denies hematochezia or melena Genitourinary Genitourinary: Reports systems reviewed and no addt'l complaints, except as documented; Denies hematuria Integumentary Integumentary: Reports systems reviewed and no addt'l complaints, except as documented Neurologic Neurologic: Reports systems reviewed and no addt'l complaints, except as documented Psychiatric Psychiatric: Reports systems reviewed and no addt'l complaints, except as documented Endocrine Endocrinology: Reports systems reviewed and no addt'l complaints, except as documented Hematologic/Lymphatic Hematologic/Lymphatic: Reports systems reviewed and no addt'l complaints, except as documented and anemia; Denies easy bleeding or easy bruising Allergic/Immunologic Allergic/Immunologic: Reports systems reviewed and no addt'l complaints, except as documented Intake Vital Signs 08/08/24 14:53 08/21/24 15:24 Height 5 ft 2 in 5 ft 2 in Weight: 65.771 kg BMI 26.5 BP 110/76 Blood Pressure Location Rt brachial Position Sitting Respiration 14 Pulse 93 Pulse Source Monitor Temp 98.2 F Temperature Source Temporal Artery Pulse Oximetry (%) 97 Oxygen Delivery Method room air Intake Cyber Defense Forensics Analyst Required: No Accompanied by: Significant Other Is patient in pain?: No Allergies morphine Allergy (Verified 08/21/24 15:26) Vomiting Medications ???Medication ???Instructions ???Recorded ???Confirmed ???Type melatonin 5 mg tablet 5 mg PO QHS 04/14/22 08/21/24 Hist ory norethindrone acetate 5 mg tablet 5 mg PO .COMPLEX #45 tabs 5 08/21/24 Rx Central Venous Access Central Venous Access: No Laboratory Tests 11/24/18 04/14/22 08/08/24 17:45 08:23 14:37 Hgb 7.3 L 12.7 8.1 L Ferritin 08/09/24 14:37 Hgb Ferritin 4 L Exam Physical Exam Const alert, oriented x3, no apparent distress and healthy appearing General Appearance: cooperative and comfortable Coding Level of Care Code Off vis,new,level 3 Exam Problem Focused Diagnoses Iron deficiency anemia due to chronic blood loss D50.0 Assessment and Plan Assessment and Plan (1) Iron deficiency (more content not included)... Normal [facility] Ferritinon 08-14-2024 Ferritin [Mass/Vol] 4 ng/mL Low 22-378 [facility] Comment on above: Performed By: #### L 503.6550, L503.6150, L503.0106 #### [facility] [address] [place], [place], [id number] Ironon 08-14-2024 Iron [Mass/Vol] 16 ug/dL Low 50-170 [facility] Comment on above: Performed By: #### L 503.6550, L503.6150, L503.0106 #### [facility] [address] [place], [address] Vitamin B12on 08-14-2024 Cobalamin (Vitamin B12) [Mass/Vol] 384 pg/mL Normal 180-914 [facility] Comment on above: Performed By: #### L 503.6550, L503.6150, L503.0106 #### [facility] [address] [place], [address] PAP I-G w/rfx hrHPV-Aptimaon 08-13-2024 ADEQ Comment Normal . [facility] Comment on above: Order Comment: Speci men Comment: [id number] Comment: No. of containers..01 ThinPrep Vial Result Comment: Sati sfactory for evaluation. No endocervical component is identified. Performed By: #### L 7400.0353 ####[facility] [address] [place], [address] COMM . Normal . [facility] Comment on above: Order Comment: Speci men Comment: [id number] Comment: No. of containers..01 ThinPrep Vial Performed By: #### L 7400.0353 ####[facility] [address] [place], [address] COMMENT Comment Normal . [facility] Comment on above: Order Comment: Speci men Comment: [id number] Comment: No. of containers..01 ThinPrep Vial Result Comment: This liquid based ThinPrep(R) pap test was screened with the use of an image guided system. Performed By: #### L 7400.0353 ####[facility] [address] [place], [address] DIAG Comment Normal . [facility] Comment on above: Order Comment: Speci men Comment: [id number] Comment: No. of containers..01 ThinPrep Vial Result Comment: NEGA TIVE FOR INTRAEPITHELIAL LESION OR MALIGNANCY. Performed By: #### L 7400.0353 ####[facility] [address] [place], [address] HPV RFLX Comment Normal . [facility] Comment on above: Order Comment: Speci men Comment: [id number] Comment: No. of containers..01 ThinPrep Vial Result Comment: The HPV DNA reflex criteria were not met with this specimen result therefore, no HPV testing was performed. Performed at: [address] [id number] [employer] Dr[employer] Operator Helper: Shaunna Allison MD, Phone: [phone] Performed By: #### L 7400.0353 ####[facility] [address] [place], [place], [address] PAPSMR Comment Normal . [facility] Comment on above: Order Comment: Speci men Comment: [id number] Comment: No. of containers..01 ThinPrep Vial Result Comment: The Pap smear is a screening test designed to aid in the detection of premalignant and malignant conditions of the uterine cervix. It is not a diagnostic procedure and should not be used as the sole means of detecting cervical cancer. Both false-positive and false-negative reports do occur. Performed By: #### L 7400.0353 ####[facility] [address] [place], [place], [address] PERFORM Comment Normal . [facility] Comment on above: Order Comment: Speci men Comment: [id number] Comment: No. of containers..01 ThinPrep Vial Result Comment: Star Abdi, Helpdesk Analyst (ASCP) Performed By: #### L 7400.0353 ####[facility] [address] [place], [address] Pelvic w/ Transvaginalon Pelvic w/ Transvaginal [facility] [address] [place], [place] [address] Pelvic w/ Transvaginal MR#: [id number] Acct: [id number] Name: FARA WALDEN Rep #: [id number] : 2000 F 24 From: Sebastian Zepeda MD PCP: SISI Erickson Status: DEP CLI Study: Pelvic w/ Transvaginal Date of Exam: 08/13/24 Exam# [id number] Ordering Dr: Kaylah Ospina PROCEDURE: PELVIC W/ TRANSVAGINAL (USPELTVAG), 08/13/2024 REASON FOR EXAM: PCOS TECHNIQUE: Grayscale, color Doppler, and spectral Doppler transabdominal and transvaginal pelvic ultrasound was performed. COMPARISON: 11/24/2018 FINDINGS: Uterus: 6.9 x 4.8 x 3.5 cm, retroverted. Unremarkable echotexture. Endometrium: 19 mm, echogenic secretory appearance with tiny cystic areas are and associated vascularity. Cervix: Nabothian cysts Right ovary: 3.5 x 3.2 x 1.9 cm (estimated volume 11.1 mL). Numerous follicles however these do not appear peripherally located and there are less than 10 per single image. Normal low resistance arterial waveforms. Left ovary: 3.8 x 2.9 x 2.3 cm (estimated volume 13.2 mL. Numerous follicles, greater than or equal to 10 per image. Central stroma does not appear echogenic. Normal faint low resistance arterial and likely superimposed venous. Free fluid: Trace, potentially physiologic Other: Estimated bladder volume 263 mL. US/Pelvic w/ Transvaginal IMPRESSION: 1. Findings are borderline and narrowly do not meet criteria to suggest polycystic ovarian syndrome on the RIGHT, however narrowly meet criteria on the LEFT. Correlate with clinical and laboratory evaluation. 2. Endometrial thickening for a premenopausal female, with nonspecific heterogeneity and vascularity. This may reflect hyperplasia however recommend follow-up in the early proliferative phase when endometrial thickness is expected to be at a miguel to ensure resolution. 3. Additional description as above. Reading Location: [id number] CC: SISI Ospina; SISI Pham Brake Liner: Signed Normal [facility] DHEA Sulfateon 08-11-2024 DHEA SULFATE 117.0 ug/dL Normal 84.8-378.0 [facility] Comment on above: Order Comment: N Performed By: #### L 3100.5400, L801.2600, L100.0100, L3300.1500, L506.0400, L3400.4800, L501.9520, L500.4100, L501.9985, L506.1001, L500.4050 ####[facility] [address] [place], [place], [address] PROLACTIN 4465on 08-11-2024 PROLACTIN 26.6 ng/mL Normal 4.8-33.4 [facility] Comment on above: Performed By: #### L 3100.5400, L801.2600, L100.0100, L3300.1500, L506.0400, L3400.4800, L501.9520, L500.4100, L501.9985, L506.1001, L500.4050 ####[facility] [address] [place], [place], [address] Testosterone Freeon 08-12-19 25 TESTOSTER FREE 1.1 pg/mL Normal 0.0-4.2 [facility] Comment on above: Result Comment: Perf ormed at: [facility] [address] [id number] [employer] Helper: Aleksandr Jamison PhD, Phone: [phone] Performed at: [facility] [address] [id number] [employer] Operator Helper: Camron Baldwin MD, Phone: [phone] Performed By: #### L 3100.5400, L801.2600, L100.0100, L3300.1500, L506.0400, L3400.4800, L501.9520, L500.4100, L501.9985, L506.1001, L500.4050 ####[facility] [address] [place], [place], [id number] PROGESTERONE 4317on 08-11-19 25 PROGESTERONE 0.1 ng/mL Normal . [facility] Comment on above: Order Comment: N Result Comment: Foll icular phase 0.1 - 0.9 Luteal phase 1.8 - 23.9 Ovulation phase 0.1 - 12.0 First trimester 11.0 - 44.3 Second trimester 25.4 - 83.3 Third trimester 58.7 - 214.0 Postmenopausal 0.0 - 0.1 Performed at: [facility] [address] [id number] [employer] Helper: Aleksandr Jamison PhD, Phone: [phone] Performed By: #### L 3100.5400, L801.2600, L100.0100, L3300.1500, L506.0400, L3400.4800, L501.9520, L500.4100, L501.9985, L506.1001, L500.4050 ####[facility] [address] [place], [address] Iron measurement (mass/mass) Ordered By: Kaylah Ospina on 08-09-2024 Iron (Unsp spec) [Mass/Mass] 16 ug/dL Low 50-170 [facility] Serum or plasma ferritin stephie surement (mass/volume)Ordered By: Kaylah Ospina on 08-09-2024 Ferritin [Mass/Vol] 4 ng/mL Low 22-378 [facility] Vitamin B12 ser/plasOrdered By: Kaylah Ospina on 08-09-2024 Cobalamin (Vitamin B12) [Mass/Vol] 384 pg/mL 180-914 [facility] Absolute lymphocyte countOrd ered By: Kaylah Ospina on 08-08-2024 Lymphocytes Auto (Unsp spec) [#/Vol] 1.80 10*3/uL 0.83-4.51 [facility] Absolute neutrophil countOrd ered By: Kaylah Ospina on 08-08-2024 Neutrophils (Bld) [#/Vol] 3.1 10*3/uL 2.0-7.7 [facility] Anion gap in Serum or Plasma Ordered By: Kaylah Ospina on 08-08-2024 Anion gap [Moles/Vol] 12 mmol/L 5-15 [facility] Automated lymphocyte count a s percentage of total leukocytesOrdered By: Kaylah Ospina on 08-08-2024 Lymphocytes/100 WBC Auto (Unsp spec) 34.0 % 19-41 [facility] BUN/creatinine ratioOrdered By: Kaylah Ospina on 08-08-2024 Urea nitrogen/Creatinine [Mass ratio] 12.3 mg/mg 10-20 [facility] Basophil percentageOrdered B y: Kaylah Ospina on 08-08-2024 Basophils/100 WBC (Bld) 0.4 % 0-1 [facility] Bilirubin, totalOrdered By: Kaylah Ospina on 08-08-2024 Bilirubin [Mass/Vol] 0.35 mg/dL 0.00-1.30 [facility] CBC W/Diff, Automatedon 07-18 Absolute Lymph 1.80 X10 3/uL Normal 0.83-4.51 [facility] Comment on above: Performed By: #### L 3100.5400, L801.2600, L100.0100, L3300.1500, L506.0400, L3400.4800, L501.9520, L500.4100, L501.9985, L506.1001, L500.4050 ####[facility] [address] [facility] [address] [place], [place], [phone] Absolute Neut 3.1 X10 3/uL Normal 2.0-7.7 [facility] Comment on above: Performed By: #### L 3100.5400, L801.2600, L100.0100, L3300.1500, L506.0400, L3400.4800, L501.9520, L500.4100, L501.9985, L506.1001, L500.4050 ####[facility] [address] [place], [place], [phone] Basophils/100 WBC (Bld) 0.4 % Normal 0-1 [facility] Comment on above: Performed By: #### L 3100.5400, L801.2600, L100.0100, L3300.1500, L506.0400, L3400.4800, L501.9520, L500.4100, L501.9985, L506.1001, L500.4050 ####[facility] [address] [place], [address] Eosinophils/100 WBC (Bld) 0.4 % Normal 0-5 [facility] Comment on above: Performed By: #### L 3100.5400, L801.2600, L100.0100, L3300.1500, L506.0400, L3400.4800, L501.9520, L500.4100, L501.9985, L506.1001, L500.4050 ####[facility] [address] [place], [place], [phone]) Erythrocyte distribution width (RBC) [Ratio] 16.8 % High 11.6-14.6 [facility] Comment on above: Performed By: #### L 3100.5400, L801.2600, L100.0100, L3300.1500, L506.0400, L3400.4800, L501.9520, L500.4100, L501.9985, L506.1001, L500.4050 ####[facility] [address] [place], [place], [phone]) Hematocrit (Bld) [Volume fraction] 28.2 % Low 37-47 [facility] Comment on above: Performed By: #### L 3100.5400, L801.2600, L100.0100, L3300.1500, L506.0400, L3400.4800, L501.9520, L500.4100, L501.9985, L506.1001, L500.4050 ####[facility] [address] [place], [place], [phone](714) Hemoglobin (Bld) [Mass/Vol] 8.1 g/dL Low 12.0-15.0 [facility] Comment on above: Performed By: #### L 3100.5400, L801.2600, L100.0100, L3300.1500, L506.0400, L3400.4800, L501.9520, L500.4100, L501.9985, L506.1001, L500.4050 ####[facility] [address] [place], [address] IG% 0.200 Normal 0.0-0.9 [facility] Comment on above: Result Comment: IG% - Immature Granulocytes (promyelocytes, myelocytes and metamyelocytes) > 1% indicates that a LEFT SHIFT is Present. Performed By: #### L 3100.5400, L801.2600, L100.0100, L3300.1500, L506.0400, L3400.4800, L501.9520, L500.4100, L501.9985, L506.1001, L500.4050 ####[facility] [address] [facility] [place], [address] Lymphocytes/100 WBC (Bld) 34.0 % Normal 19-41 [facility] Comment on above: Performed By: #### L 3100.5400, L801.2600, L100.0100, L3300.1500, L506.0400, L3400.4800, L501.9520, L500.4100, L501.9985, L506.1001, L500.4050 ####[facility] [address] [facility] [place], [address] MCH (RBC) [Entitic mass] 21.4 pg Low 27.0-32.0 [facility] Comment on above: Performed By: #### L 3100.5400, L801.2600, L100.0100, L3300.1500, L506.0400, L3400.4800, L501.9520, L500.4100, L501.9985, L506.1001, L500.4050 ####[facility] [address] [facility] [place], [address] MCHC (RBC) [Mass/Vol] 28.7 g/dL Low 32-36 [facility] Comment on above: Performed By: #### L 3100.5400, L801.2600, L100.0100, L3300.1500, L506.0400, L3400.4800, L501.9520, L500.4100, L501.9985, L506.1001, L500.4050 ####[facility] [address] [place], [address] MCV (RBC) [Entitic vol] 74.6 fL Low 81-99 [facility] Comment on above: Performed By: #### L 3100.5400, L801.2600, L100.0100, L3300.1500, L506.0400, L3400.4800, L501.9520, L500.4100, L501.9985, L506.1001, L500.4050 ####[facility] [address] [place], [address] Monocytes/100 WBC (Bld) 6.2 % Normal 0-10 [facility] Comment on above: Performed By: #### L 3100.5400, L801.2600, L100.0100, L3300.1500, L506.0400, L3400.4800, L501.9520, L500.4100, L501.9985, L506.1001, L500.4050 ####[facility] [address] [place], [address] Neutrophils/100 WBC (Bld) 58.8 % Normal 47-70 [facility] Comment on above: Performed By: #### L 3100.5400, L801.2600, L100.0100, L3300.1500, L506.0400, L3400.4800, L501.9520, L500.4100, L501.9985, L506.1001, L500.4050 ####[facility] [address] [place], [address] Nucleated RBC (Bld) [#/Vol] 0 10*3/uL Normal 0-5 [facility] Comment on above: Performed By: #### L 3100.5400, L801.2600, L100.0100, L3300.1500, L506.0400, L3400.4800, L501.9520, L500.4100, L501.9985, L506.1001, L500.4050 ####[facility] [address] [place], [address] Platelet mean volume (Bld) [Entitic vol] 10.0 fL Normal 6.2-12.0 [facility] Comment on above: Performed By: #### L 3100.5400, L801.2600, L100.0100, L3300.1500, L506.0400, L3400.4800, L501.9520, L500.4100, L501.9985, L506.1001, L500.4050 ####[facility] [address] [place], [place], [phone](860) Platelets (Bld) [#/Vol] 338 10*3/uL Normal 150-450 [facility] Comment on above: Performed By: #### L 3100.5400, L801.2600, L100.0100, L3300.1500, L506.0400, L3400.4800, L501.9520, L500.4100, L501.9985, L506.1001, L500.4050 ####[facility] [address] [place], [place], [address](789) RBC (Bld) [#/Vol] 3.78 10*6/uL Low 4.2-5.4 [facility] Comment on above: Performed By: #### L 3100.5400, L801.2600, L100.0100, L3300.1500, L506.0400, L3400.4800, L501.9520, L500.4100, L501.9985, L506.1001, L500.4050 ####[facility] [address] [place], [place], [phone] RDW SD 45.5 fl High 35.1-43.9 [facility] Comment on above: Performed By: #### L 3100.5400, L801.2600, L100.0100, L3300.1500, L506.0400, L3400.4800, L501.9520, L500.4100, L501.9985, L506.1001, L500.4050 ####[facility] [address] [place], [place], [phone] WBC (Bld) [#/Vol] 5.3 10*3/uL Normal 4.4-11.0 [facility] Comment on above: Performed By: #### L 3100.5400, L801.2600, L100.0100, L3300.1500, L506.0400, L3400.4800, L501.9520, L500.4100, L501.9985, L506.1001, L500.4050 ####[facility] [address] [place], [place], [phone] Calculated very low density lipoprotein (VLDL) cholesterol measurementOrdered By: Kaylah Ospina on 08-08-2024 Calculated very low density lipoprotein (VLDL) cholesterol measurement 14 mg/dL 5-40 [facility] VLDL Cholesterol 14 mg/dL 5-40 [facility] Carbon dioxide, total [Moles /volume] in Central venous bloodOrdered By: Kaylah Ospina on 08-08-2024 CO2 [Moles/Vol] 20.2 mmol/L Low 21.0-32.0 [facility] Cervical or vagninal specime n microscopic examination by cytology stain (reported asOrdered By: Kaylah Ospina on 08-08-2024 Cytology report Cyto stain Doc (Cvx/Vag) Comment . [facility] Comment on above: The Pap smear is a s creening test designed to aid in thedetection of premalignant and malignant conditions of theuterine cervix. It is not a diagnostic procedure andshould not be used as the sole means of detecting cervicalcancer. Both false-positive and false-negative reports dooccur. Chloride assayOrdered By: Fabi Ospina on 08-08-2024 Chloride [Moles/Vol] 106 mmol/L 98-108 [facility] Comprehensive Metabolic Prof ilon 08-08-2024 Albumin [Mass/Vol] 4.6 g/dL Normal 3.5-5.0 [facility] Comment on above: Performed By: #### L 3100.5400, L801.2600, L100.0100, L3300.1500, L506.0400, L3400.4800, L501.9520, L500.4100, L501.9985, L506.1001, L500.4050 ####[facility] [address] [place], [address] Albumin/Globulin [Mass ratio] 1.5 {ratio} Normal 0.9-2.4 [facility] Comment on above: Performed By: #### L 3100.5400, L801.2600, L100.0100, L3300.1500, L506.0400, L3400.4800, L501.9520, L500.4100, L501.9985, L506.1001, L500.4050 ####[facility] [address] [place], [place], [id number] ALK PHOS 84 U/L Normal 35-104 [facility] Comment on above: Performed By: #### L 3100.5400, L801.2600, L100.0100, L3300.1500, L506.0400, L3400.4800, L501.9520, L500.4100, L501.9985, L506.1001, L500.4050 ####[facility] [address] [place], [address] ALT [Catalytic activity/Vol] 11 U/L Normal <=34 [facility] Comment on above: Performed By: #### L 3100.5400, L801.2600, L100.0100, L3300.1500, L506.0400, L3400.4800, L501.9520, L500.4100, L501.9985, L506.1001, L500.4050 ####[facility] [address] [place], [address] AST [Catalytic activity/Vol] 19 U/L Normal <=31 [facility] Comment on above: Performed By: #### L 3100.5400, L801.2600, L100.0100, L3300.1500, L506.0400, L3400.4800, L501.9520, L500.4100, L501.9985, L506.1001, L500.4050 ####[facility] [address] [place], [address] Bilirubin [Mass/Vol] 0.35 mg/dL Normal 0.00-1.30 [facility] Comment on above: Performed By: #### L 3100.5400, L801.2600, L100.0100, L3300.1500, L506.0400, L3400.4800, L501.9520, L500.4100, L501.9985, L506.1001, L500.4050 ####[facility] [address] [place], [address] BUN/CRE 12.3 RATIO Normal 10-20 [facility] Comment on above: Performed By: #### L 3100.5400, L801.2600, L100.0100, L3300.1500, L506.0400, L3400.4800, L501.9520, L500.4100, L501.9985, L506.1001, L500.4050 ####[facility] [address] [place], [address] Calcium [Mass/Vol] 9.5 mg/dL Normal 7.6-11.0 [facility] Comment on above: Performed By: #### L 3100.5400, L801.2600, L100.0100, L3300.1500, L506.0400, L3400.4800, L501.9520, L500.4100, L501.9985, L506.1001, L500.4050 ####[facility] [address] [place], [place], [address] Chloride [Moles/Vol] 106 mmol/L Normal 98-108 [facility] Comment on above: Performed By: #### L 3100.5400, L801.2600, L100.0100, L3300.1500, L506.0400, L3400.4800, L501.9520, L500.4100, L501.9985, L506.1001, L500.4050 ####[facility] [address] [place], [place], [address] CO2 [Moles/Vol] 20.2 mmol/L Low 21.0-32.0 [facility] Comment on above: Performed By: #### L 3100.5400, L801.2600, L100.0100, L3300.1500, L506.0400, L3400.4800, L501.9520, L500.4100, L501.9985, L506.1001, L500.4050 ####[facility] [address] [place], [place], [address] Creatinine [Mass/Vol] 0.71 mg/dL Normal 0.70-1.20 [facility] Comment on above: Performed By: #### L 3100.5400, L801.2600, L100.0100, L3300.1500, L506.0400, L3400.4800, L501.9520, L500.4100, L501.9985, L506.1001, L500.4050 ####[facility] [address] [place], [place], [address] GAP 12 Normal 5-15 [facility] Comment on above: Performed By: #### L 3100.5400, L801.2600, L100.0100, L3300.1500, L506.0400, L3400.4800, L501.9520, L500.4100, L501.9985, L506.1001, L500.4050 ####[facility] [address] [place], [address] GFR/1.73 sq M.predicted among non-blacks MDRD (S/P/Bld) [Vol rate/Area] 121 mL/min/{1.73_m2} Normal >60 [facility] Comment on above: Result Comment: mL/m in/1.73m2 CKD-EPI Creatinine Equation (2020) Performed By: #### L 3100.5400, L801.2600, L100.0100, L3300.1500, L506.0400, L3400.4800, L501.9520, L500.4100, L501.9985, L506.1001, L500.4050 ####[facility] [address] [place], [address] Globulin (S) [Mass/Vol] 3.1 g/dL Normal 2.2-4.2 [facility] Comment on above: Performed By: #### L 3100.5400, L801.2600, L100.0100, L3300.1500, L506.0400, L3400.4800, L501.9520, L500.4100, L501.9985, L506.1001, L500.4050 ####[facility] [address] [place], [address] Glucose [Mass/Vol] 90 mg/dL Normal 70-99 [facility] Comment on above: Performed By: #### L 3100.5400, L801.2600, L100.0100, L3300.1500, L506.0400, L3400.4800, L501.9520, L500.4100, L501.9985, L506.1001, L500.4050 ####[facility] [address] [place], [address] Potassium [Moles/Vol] 3.9 mmol/L Normal 3.3-5.1 [facility] Comment on above: Performed By: #### L 3100.5400, L801.2600, L100.0100, L3300.1500, L506.0400, L3400.4800, L501.9520, L500.4100, L501.9985, L506.1001, L500.4050 ####[facility] [address] [place], [address] Sodium [Moles/Vol] 138 mmol/L Normal 133-145 [facility] Comment on above: Performed By: #### L 3100.5400, L801.2600, L100.0100, L3300.1500, L506.0400, L3400.4800, L501.9520, L500.4100, L501.9985, L506.1001, L500.4050 ####[facility] [address] [place], [place], [phone](924) T PROT 7.7 g/dL Normal 5.9-8.4 [facility] Comment on above: Performed By: #### L 3100.5400, L801.2600, L100.0100, L3300.1500, L506.0400, L3400.4800, L501.9520, L500.4100, L501.9985, L506.1001, L500.4050 ####[facility] [address] [place], [place], [phone](844) Urea nitrogen [Mass/Vol] 9 mg/dL Normal 4-19 [facility] Comment on above: Performed By: #### L 3100.5400, L801.2600, L100.0100, L3300.1500, L506.0400, L3400.4800, L501.9520, L500.4100, L501.9985, L506.1001, L500.4050 ####[facility] [address] [place], [address] Helpdesk Analyst Cyto stain Nom (C vx/Vag) [ID]Ordered By: Kaylah Ospina on 08-08-2024 Pap Smear Performed By Comment . [facility] Comment on above: Nelda kendrick, Helpdesk Analyst (ASCP) Cytology report Cyto stain D oc (Cvx/Vag)Ordered By: Kaylah Ospina on 08-08-2024 Thin Prep Pap Smear Comment . [facility] Comment on above: The Pap smear is a s creening test designed to aid in thedetection of premalignant and malignant conditions of theuterine cervix. It is not a diagnostic procedure andshould not be used as the sole means of detecting cervicalcancer. Both false-positive and false-negative reports dooccur. Dehydroepiandrosterone sulfa te (DHEA-S) measurementOrdered By: Kaylah Ospina on 08-08-2024 Dehydroepiandrosterone Sulfate 117.0 ug/dL 84.8-378.0 [facility] Eosinophil percentageOrdered By: Kaylah Ospina on 08-08-2024 Eosinophils/100 WBC (Bld) 0.4 % 0-5 [facility] Erythrocyte distribution wid th (RBC) [Ratio]Ordered By: Kaylah Ospina on 08-08-2024 Erythrocyte distribution width (RBC) [Entitic vol] 45.5 fL High 35.1-43.9 [facility] Erythrocyte distribution wid th ratioOrdered By: Kaylah Ospina on 08-08-2024 Erythrocyte distribution width (RBC) [Ratio] 16.8 % High 11.6-14.6 [facility] Erythrocyte distribution wid th standard deviationOrdered By: Kaylah Ospina on 08-08-2024 Erythrocyte distribution width (RBC) [Ratio] 45.5 fl High 35.1-43.9 [facility] GFR/1.73 sq M.predicted barbara g non-blacks MDRD (S/P/Bld) [Vol rate/Area]Ordered By: Kaylah Ospina on 08-08-2024 Estimated GFR (MDRD) Non-Af Amer 121 >60 [facility] Comment on above: mL/min/1.73m2 CKD-EP I Creatinine Equation (2020) Glomerular filtration rate ( GFR) estimation/1.73 sq m using serum, plasma, or whole bOrdered By: Kaylah Ospina on 08-08-2024 GFR/1.73 sq M.predicted among non-blacks MDRD (S/P/Bld) [Vol rate/Area] 121 mL/min/{1.73_m2} >60 [facility] Comment on above: mL/min/1.73m2 CKD-EP I Creatinine Equation (2020) Hematocrit Auto (Bld) [Volum e fraction]Ordered By: Kaylah Ospina on 08-08-2024 Hematocrit (Bld) [Volume fraction] 28.2 % Low 37-47 [facility] Hemoglobin A1con 08-08-2024 HbA1c (Bld) [Mass fraction] 4.9 % Normal <=5.6 [facility] Comment on above: Result Comment: Norm al < 5.7 % Prediabetic 5.7 - 6.4 % Diabetic >or= 6.5 % Please note range changes. Performed By: #### L 3100.5400, L801.2600, L100.0100, L3300.1500, L506.0400, L3400.4800, L501.9520, L500.4100, L501.9985, L506.1001, L500.4050 ####[facility] [id number] [place], [place], [id number] Hemoglobin A1c percentageOrd ered By: Kaylah Ospina on 08-08-2024 HbA1c (Bld) [Mass fraction] 4.9 % <5.7 [facility] Comment on above: Normal < 5.7 % Predi abetic 5.7 - 6.4 % Diabetic >or= 6.5 % Please note range changes. Hemoglobin measurementOrdere d By: Kaylah Ospina on 08-08-2024 Hemoglobin (Bld) [Mass/Vol] 8.1 g/dL Low 12.0-15.0 [facility] Image-guided ThinPrep PapOrd ered By: Kaylah Ospina on 08-08-2024 Pap Smear Note Comment . [facility] Comment on above: This liquid based Th inPrep(R) pap test was screened withthe use of an image guided system. Image-guided liquid-based Pa pOrdered By: Kaylah Ospina on 08-08-2024 Pap Smear Diagnosis Comment . [facility] Comment on above: NEGATIVE FOR INTRAEP ITHELIAL LESION OR MALIGNANCY. Image-guided liquid-based ce rvical Pap w high-risk HPV+reflex to HPV 16+18Ordered By: Kaylah Ospina on 08-08-2024 Human Papillomavirus Screen Comment . [facility] Comment on above: The HPV DNA reflex c riteria were not met with this specimenresult therefore, no HPV testing was performed.Performed at: [facility] - [facility] [id number] Director: Shaunna Allison MD, Phone: [phone] Immature granulocytes/100 WB C Auto (Bld)Ordered By: Kaylah Ospina on 08-08-2024 Immature granulocytes/100 WBC (Bld) 0.200 % 0.0-0.9 [facility] Comment on above: IG% - Immature Granu locytes (promyelocytes, myelocytes and metamyelocytes) > 1% indicates that a LEFT SHIFT is Present. LDL calc ser/plasOrdered By: Kaylah Ospina on 08-08-2024 Cholesterol in LDL [Mass/Vol] 67 mg/dL [facility] Comment on above: Tiklembmfz=826-499 m g/dL & Higher Ckvq=436 mg/dL or greater LDL Cholesterol, Calculated 67 mg/dL [facility] Comment on above: Iyaardkcok=029-664 m g/dL & Higher Utam=031 mg/dL or greater Laboratory - Chemistry and C hemistry - challengeOrdered By: Kaylah Ospina on 08-08-2024 AST [Catalytic activity/Vol] 19 U/L <32 [facility] HCG ( test) Ql (U) Negative [facility] Laboratory - CytologyOrdered By: Kaylah Ospina on 08-08-2024 Helpdesk Analyst Cyto stain Nom (Cvx/Vag) [ID] Comment . [facility] Comment on above: Nelda Aguilera-Ab assi, Helpdesk Analyst (ASCP) Laboratory - Miscellaneous t estsOrdered By: Kaylah Ospina on 08-08-2024 Service comment (Unsp spec) [Interp] . . [facility] Lipid Profileon 08-08-2024 CHOL:HDL 2.85 Normal [facility] Comment on above: Performed By: #### L 3100.5400, L801.2600, L100.0100, L3300.1500, L506.0400, L3400.4800, L501.9520, L500.4100, L501.9985, L506.1001, L500.4050 ####[facility] [address] [place], [address] Cholesterol [Mass/Vol] 125 mg/dL Normal <=200 [facility] Comment on above: Result Comment: Chol esterol level, Desirable <200 mg/dL Borderline high cholesterol 200-239 mg/dL High cholesterol >=240 mg/dL Recommendations of the NCEP Adult Treatment Panel for the following risk-cutoff thresholds for the [place] population. Performed By: #### L 3100.5400, L801.2600, L100.0100, L3300.1500, L506.0400, L3400.4800, L501.9520, L500.4100, L501.9985, L506.1001, L500.4050 ####[facility] [address] [place], [address] Cholesterol in HDL [Mass/Vol] 44 mg/dL Normal [facility] Comment on above: Result Comment: Kate onal Cholesterol Education Program (NCEP) guidelines: <40 mg/dL: Low HDL-cholesterol (major risk factor for CHD) >= 60 mg/dL: High HDL-cholesterol (negative risk factor for CHD) HDL-cholesterol is affected by a number of factors, e.g. smoking, exercise, hormones, sex and age. Performed By: #### L 3100.5400, L801.2600, L100.0100, L3300.1500, L506.0400, L3400.4800, L501.9520, L500.4100, L501.9985, L506.1001, L500.4050 ####[facility] [address] [place], [address] Cholesterol in LDL [Mass/Vol] 67 mg/dL Normal [facility] Comment on above: Result Comment: Bord jfqwxe=649-104 mg/dL Higher Xutg=101 mg/dL or greater Performed By: #### L 3100.5400, L801.2600, L100.0100, L3300.1500, L506.0400, L3400.4800, L501.9520, L500.4100, L501.9985, L506.1001, L500.4050 ####[facility] [address] [facility] [place], [address] Cholesterol in VLDL [Mass/Vol] 14 mg/dL Normal 5-40 [facility] Comment on above: Performed By: #### L 3100.5400, L801.2600, L100.0100, L3300.1500, L506.0400, L3400.4800, L501.9520, L500.4100, L501.9985, L506.1001, L500.4050 ####[facility] [address] [place], [address] Triglyceride [Mass/Vol] 69 mg/dL Normal [facility] Comment on above: Result Comment: The drugs N-Acetylcysteine and Metamizole may falsely depress this assay. Normal range: <150 mg/dL Borderline High: 150-199 mg/dL High: 200-499 mg/dL Very High: >500 mg/dL Performed By: #### L 3100.5400, L801.2600, L100.0100, L3300.1500, L506.0400, L3400.4800, L501.9520, L500.4100, L501.9985, L506.1001, L500.4050 ####[facility] [address] [place], [address] Lymphocytes Auto (Unsp spec) [#/Vol]Ordered By: Kaylah Ospina on 08-08-2024 Lymphocytes (Bld) [#/Vol] 1.80 10*3/uL 0.83-4.51 [facility] Lymphocytes/100 WBC Auto (Un sp spec)Ordered By: Kaylah Ospina on 08-08-2024 Lymphocytes/100 WBC (Bld) 34.0 % 19-41 [facility] MCV (mean corpuscular volume ) determinationOrdered By: Kaylah Ospina on 08-08-2024 MCV (RBC) [Entitic vol] 74.6 fL Low 81-99 [facility] Mean corpuscular hemoglobin (MCH) determinationOrdered By: Kaylah Ospina on 08-08-2024 MCH (RBC) [Entitic mass] 21.4 pg Low 27.0-32.0 [facility] Mean corpuscular hemoglobin concentration (MCHC) determinationOrdered By: Kaylah Ospina on 08-08-2024 MCHC (RBC) [Mass/Vol] 28.7 g/dL Low 32-36 [facility] Mean platelet volume determi nationOrdered By: Kaylah Ospina on 08-08-2024 Platelet mean volume (Bld) [Entitic vol] 10.0 fL 6.2-12.0 [facility] Monocyte percentageOrdered B y: Kaylah Ospina on 08-08-2024 Monocytes/100 WBC (Bld) 6.2 % 0-10 [facility] Neutrophil percentageOrdered By: Kaylah Ospina on 08-08-2024 Neutrophils/100 WBC (Bld) 58.8 % 47-70 [facility] No Panel InformationOrdered By: Kaylah Ospina on 08-08-2024 Pap Smear Specimen Adequacy Comment . [facility] Comment on above: Satisfactory for lilian luation. No endocervical component is identified. Nucleated red blood cell per centageOrdered By: Kaylah Ospina on 08-08-2024 Nucleated RBC/100 WBC (Bld) [Ratio] 0 % 0-5 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 Is patient in pain?: No Allergies morphine Allergy (Verified 08/08/24 13:57) Vomiting Medications ???Medication ???Instructions ???Recorded ???Confirmed ???Type melatonin 5 mg tablet 5 mg PO QHS 04/14/22 08/08/24 Hist ory Is last menstrual period known: No Post menopausal: No Patient : No : No Control Method: none [facility] Medical History (Updated 08/08/24 @ 14:32 by SISI Tang) History of anemia PCOS (polycystic ovarian syndrome)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 relief. 2nd ER visit was given Viosterol also with no relief. No major life changes to note. States she has had anxiety her whole life and was given Zoloft in 2019 but didn't think her anxiey was that bad then and stopped taking Rx. History of Present [id number] year old female here with her significant other to establish care. She has concerns of anxiety/depression. Previous PCP was Dr. Londono was last seen last week. She has concerns of panic attacks, last year or so has been getting worse. Extremely worse since April 09. Zoloft in 2019 but did not notice a difference was only on a month before she stopped. She did not know she should continue. Denies any counseling. Brother and grandmother would have anxiety. Has panic attacks and will last for long periods of time. THis is usually a daily occurrence. She reports when she will get a panic attack she will get a weird sensation in the back of her head and she will get a tingling sensation in her hands/body. Anemia: Has history and was taking iron supplement and was told she didn?t need it. Was seen in ER at [place] and [place] April 14 and . Labs done on the . Went to ER and was told she had vertigo. Was seen by ENT on Tuesday and they told her it was not vertigo. Dr. Snyder in [place]. Health maintenance: Pap: 2020 last done at [facility] in [place]. Social Hx: Tobacco: nicotine pod vape ETOH: Denies Drugs: Denies Caffeine: Denies Scores and Scales PHQ-9 Depression Scale: 1. Little interest or pleasure in doing things - nearly every day 2. Feeling down, depressed or hopeless - nearly every day 3. Trouble falling asleep or sleeping too much - nearly every day 4. Feeling tired or having little energy - nearly every day 5. Poor appetite or overeating - nearly every day 6. Feeling bad about self or failure or letting others down - nearly every day 7. Trouble concentrating on things - nearly every day 8. Moving / speaking slowly or fidgety / restless - nearly every day 9. Thought would be better off or hurting self - not at all Total Score: 24/27 Severity of depression is severe. How difficult have these problems made it for you to do your work, take care of things at home, or get along with people? Extremely difficult. Generalized Anxiety Disorder 7 - Item Scale (ALIYA-7): Over the last 2 weeks, how often have you been bothered by the following problems? Feeling nervous, anxious or on edge: Nearly every day = 3 Not being able to stop or control worrying: Nearly every day = 3 Worrying too much about different things: Nearly every day = 3 Trouble relaxing: Nearly every day = 3 Being so restless that it is hard to sit still: Nearly every day = 3 Becoming easily annoyed or irritable: Nearly every day = 3 Feeling afraid as if something awful might happen: Nearly every day = 3 Total score: 21. (more content not included)... Normal [employer] Tobacco Screening.on 023 Adult depression screening assessment Yes [facility] DO Work Phone: Tobacco use status [facility]PH[facility] a) Yes M P-Ita harvey [facility] DO Work Phone: Absolute lymphocyte counton 04-14-2022 Lymphocytes Auto (Unsp spec) [#/Vol] 2.37 10*3/uL 0.83-4.51 [facility] Work Phone: Basophil percentageon 2021 Basophils/100 WBC (Bld) 0.4 % 0-1 [facility] Work Phone: Chloride [Moles/Vol] 105 mmol/L 98-107 [facility] Work Phone: Eosinophils/100 WBC (Bld) 0.1 % 0-5 [facility] Work Phone: Glucose [Mass/Vol] 99 mg/dL 74-106 [facility] Work Phone: Neutrophils (Bld) [#/Vol] 4.0 10*3/uL 2.0-7.7 [facility] Work Phone: Neutrophils/100 WBC (Bld) 57.8 % 47-70 [facility] Work Phone: Potassium [Moles/Vol] 3.6 mmol/L 3.5-5.1 [facility] Work Phone: Sodium [Moles/Vol] 137 mmol/L 136-145 [facility] Work Phone: WBC (Bld) [#/Vol] 6.9 10*3/uL 4.4-11.0 [facility] Work Phone: Blood erythrocytes count (nu mber/volume)on 04-14-2022 RBC (Bld) [#/Vol] 4.56 10*6/uL 4.2-5.4 [facility] Work Phone: Blood hemoglobin measurement (mass/volume)on 04-14-2022 Hemoglobin (Bld) [Mass/Vol] 12.7 g/dL 12.0-15.0 [facility] Work Phone: Blood lymphocytes/100 leukoc yteson 04-14-2022 Lymphocytes/100 WBC (Bld) 34.5 % 19-41 [facility] Work Phone: Blood monocytes/100 leukocyt eson 04-14-2022 Monocytes/100 WBC (Bld) 7.1 % 0-10 [facility] Work Phone: Blood platelet mean volumeon 04-14-2022 Platelet mean volume (Bld) [Entitic vol] 9.2 fL 6.2-12.0 [facility] Work Phone: Determination of erythrocyte mean corpuscular volume (MCV)on 04-14-2022 MCV (RBC) [Entitic vol] 82.9 fL 81-99 [facility] Work Phone: Hematocrit Auto (Bld) [Volum e fraction]on 04-14-2022 Hematocrit (Bld) [Volume fraction] 37.8 % 37-47 [facility] Work Phone: Laboratory - Chemistry and C hemistry - challengeon 04-14-2022 CO2 [Moles/Vol] 26.0 mmol/L 21.0-32.0 [facility] Work Phone: Urea nitrogen/Creatinine [Mass ratio] 17.8 mg/mg 10-20 [facility] Work Phone: Laboratory - Hematology and Cell countson 04-14-2022 Erythrocyte distribution width (RBC) [Entitic vol] 42.0 fL 35.1-43.9 [facility] Work Phone: Erythrocyte distribution width (RBC) [Ratio] 14.0 % 11.6-14.6 [facility] Work Phone: Immature granulocytes/100 WBC (Bld) 0.100 % 0.0-0.9 [facility] Work Phone: [phone] Comment on above: IG% - Immature Granu locytes (promyelocytes, myelocytes and metamyelocytes) > 1% indicates that a LEFT SHIFT is Present. MCH (RBC) [Entitic mass] 27.9 pg 27.0-32.0 [facility] Work Phone: Nucleated RBC/100 WBC (Bld) [Ratio] 0 % 0-5 [facility] Work Phone: MCHC Auto (RBC) [Mass/Vol]on 04-14-2022 MCHC (RBC) [Mass/Vol] 33.6 g/dL 32-36 [facility] Work Phone: No Panel Informationon 04-14 Estimated Creatinine Clearance Calc 86.09 ml/min [facility] Work Phone: Estimated GFR (MDRD) Amer 126 mL/min >60 [facility] Work Phone: Comment on above: GFR Calc Estimated GFR (MDRD) Non-Af Amer 104 mL/min >60 [facility] Work Phone: Comment on above: Non- GFR Calc Platelets bldon 04-14-2022 Platelets (Bld) [#/Vol] 379 10*3/uL 150-450 [facility] Work Phone: Serum or plasma calcium hakeem urement (mass/volume)on 04-14-2022 Calcium [Mass/Vol] 9.6 mg/dL 8.5-10.1 [facility] Work Phone: Serum or plasma creatinine m easurement (mass/volume)on 04-14-2022 Creatinine [Mass/Vol] 0.73 mg/dL 0.55-1.02 [facility] Work Phone: Comment on above: The validity of the calculated GFR & GFRAA in patients over 70 years has not been determined. Clinical correlation is essential. Serum or plasma urea nitroge n measurement (mass/volume)on 04-14-2022 Urea nitrogen [Mass/Vol] 13 mg/dL 7-18 [facility] Work Phone: Thin prep Papanicolaou smear with manual screeningon 04-14-2022 Thin prep Papanicolaou smear with manual screening 6 5-15 [facility] Work Phone: NOVEL CORONAVIRUSon 02-11-20 21 NARRATIVE This test was perfor med using isothermal BRAD and has been approved as Emergency Use Authorization (EUA) for the qualitative detection [id number] nucleic acid. Normal [facility] Comment on above: Result Comment: Test ing performed at [place] [address] Performed By: #### C OVID #### Testing [place] [address] SARS-CoV-2 (COVID-19) RNA BRAD+probe Ql (Unsp spec) Not detected Normal NOT DETECTED [facility] Comment on above: Result Comment: Nega tive results do not preclude SARS-CoV-2 infection and should not be used as the sole basis for treatment or other patient management decisions. Optimum specimen types and timing for peak viral levels during infections caused by SARS-CoV-2 has not been determined. The possibility of a false negative result should especially be considered if the patient's recent exposures or clinical presentation suggest that SARS-CoV-2 infection is probable, and diagnostic tests for other causes of illness (e.g., other respiratory illness) are negative. Collection of a new specimen and re-testing may be necessary if the patient is critically ill or clinically deteriorating. Performed By: #### C OVID #### Testing performed [place] [address] Influenza virus A and B and SARS-CoV-2 (COVID-19) Ag panel - Upper respiratory specim SARS-CoV-2 (COVID-19) RNA BRAD+probe Ql (Resp) [facility] Work Phone: Vital Signs Date Time Vital Sign Value Performing Clinician Facility 01-17-2025 13:18-0400 Body height 157.48 cm Kaylah Ospina NP-C Work Phone: [facility] 01-17-2025 13:18-0400 Body mass index (BMI) [Ratio] 25.8 kg/m2 Kaylah Ospina NP-C Work Phone: [facility] 01-17-2025 13:18-0400 Body weight 64.09 kg Kaylah Bhavesh STATIONARY ENGINEER RE[employer]IGERATION-C Work Phone: [facility] 01-17-2025 13:18-0400 Diastolic blood pressure 72 mm[Hg] Kaylah Bhavesh STATIONARY ENGINEER [employer]IGERATION-C Work Phone: [facility] 01-17-2025 13:18-0400 Systolic blood pressure 111 mm[Hg] Kaylah Bhavesh STATIONARY ENGINEER REFRIGERATION-C Work Phone: [facility] 12-04-2024 14:06-0400 Body height 157.48 cm No Primary Care Physician [facility] 12-04-2024 14:06-0400 Body mass index (BMI) [Ratio] 25.7 kg/m2 No Primary Care Physician [facility] 12-04-2024 14:06-0400 Body temperature 98.9 [degF] No Primary Care Physician [facility] 12-04-2024 14:06-0400 Body weight 63.7 kg No Primary Care Physician [facility] 12-04-2024 14:06-0400 Diastolic blood pressure 69 mm[Hg] No Primary Care Physician [facility] 12-04-2024 14:06-0400 Heart rate 77 /min No Primary Care Physician [facility] 12-04-2024 14:06-0400 Respiratory rate 18 /min No Primary Care Physician [facility] 12-04-2024 14:06-0400 SaO2% (BldA) [Mass fraction] 100 % No Primary Care Physician [facility] 12-04-2024 14:06-0400 Systolic blood pressure 98 mm[Hg] No Primary Care Physician [facility] 09-12-2024 15:24-0400 Diastolic blood pressure 56 mm[Hg] No Primary Care Physician [facility] 09-12-2024 15:24-0400 Heart rate 71 /min No Primary Care Physician [facility] 09-12-2024 15:24-0400 Respiratory rate 16 /min No Primary Care Physician [facility] 09-12-2024 15:24-0400 Systolic blood pressure 100 mm[Hg] No Primary Care Physician [facility] 09-12-2024 13:16-0400 Body height 157.48 cm No Primary Care Physician [facility] 09-12-2024 13:16-0400 Body temperature 96.3 [degF] No Primary Care Physician [facility] 09-12-2024 13:16-0400 SaO2% (BldA) [Mass fraction] 100 % No Primary Care Physician [facility] 09-05-2024 09:34-0400 Body height 157.48 cm No Primary Care Physician [facility] 09-05-2024 09:34-0400 Body mass index (BMI) [Ratio] 26.4 kg/m2 No Primary Care Physician [facility] 09-05-2024 09:34-0400 Body weight 65.43 kg No Primary Care Physician [facility] 09-05-2024 09:34-0400 Diastolic blood pressure 75 mm[Hg] No Primary Care Physician [facility] 09-05-2024 09:34-0400 Systolic blood pressure 132 mm[Hg] No Primary Care Physician [facility] 09-04-2024 15:15-0400 Body temperature 98.6 [degF] No Primary Care Physician [facility] 09-04-2024 15:15-0400 Diastolic blood pressure 60 mm[Hg] No Primary Care Physician [facility] 09-04-2024 15:15-0400 Heart rate 71 /min No Primary Care Physician [facility] 09-04-2024 15:15-0400 Respiratory rate 16 /min No Primary Care Physician [facility] 09-04-2024 15:15-0400 SaO2% (BldA) [Mass fraction] 98 % No Primary Care Physician [facility] 09-04-2024 15:15-0400 Systolic blood pressure 103 mm[Hg] No Primary Care Physician [facility] 09-04-2024 13:08-0400 Body height 157.48 cm No Primary Care Physician [facility] 08-28-2024 13:13-0400 Body height 157.48 cm No Primary Care Physician [facility] 08-28-2024 13:13-0400 Body mass index (BMI) [Ratio] 26.9 kg/m2 No Primary Care Physician [facility] 08-28-2024 13:13-0400 Body temperature 97.7 [degF] No Primary Care Physician [facility] 08-28-2024 13:13-0400 Body weight 66.67 kg No Primary Care Physician [facility] 08-28-2024 13:13-0400 Diastolic blood pressure 63 mm[Hg] No Primary Care Physician [facility] 08-28-2024 13:13-0400 Heart rate 84 /min No Primary Care Physician [facility] 08-28-2024 13:13-0400 Respiratory rate 16 /min No Primary Care Physician [facility] 08-28-2024 13:13-0400 SaO2% (BldA) [Mass fraction] 100 % No Primary Care Physician [facility] 08-28-2024 13:13-0400 Systolic blood pressure 106 mm[Hg] No Primary Care Physician [facility] 08-21-2024 15:24-0400 Body mass index (BMI) [Ratio] 26.5 kg/m2 No Primary Care Physician [facility] 08-21-2024 15:24-0400 Body temperature 98.2 [degF] No Primary Care Physician [facility] 08-21-2024 15:24-0400 Body weight 65.77 kg No Primary Care Physician [facility] 08-21-2024 15:24-0400 Diastolic blood pressure 76 mm[Hg] No Primary Care Physician [facility] 08-21-2024 15:24-0400 Heart rate 93 /min No Primary Care Physician [facility] 08-21-2024 15:24-0400 Respiratory rate 14 /min No Primary Care Physician [facility] 08-21-2024 15:24-0400 SaO2% (BldA) [Mass fraction] 97 % No Primary Care Physician [facility] 08-21-2024 15:24-0400 Systolic blood pressure 110 mm[Hg] No Primary Care Physician [facility] 08-08-2024 13:56-0400 Body mass index (BMI) [Ratio] 26 kg/m2 No Primary Care Physician [facility] 08-08-2024 13:56-0400 Body weight 64.58 kg No Primary Care Physician [facility] 08-08-2024 13:56-0400 Diastolic blood pressure 69 mm[Hg] No Primary Care Physician [facility] 08-08-2024 13:56-0400 Systolic blood pressure 100 mm[Hg] No Primary Care Physician [facility] 05-19-2023 10:36-0500 Body weight 64.68 kg Janina Garcia MD Work Phone: [facility] 05-19-2023 10:36-0500 Diastolic blood pressure 62 mm[Hg] Jainna Garcia MD Work Phone: [facility] 05-19-2023 10:36-0500 Systolic blood pressure 100 mm[Hg] Janina Garcia MD Work Phone: [facility] 06-14-2022 13:47-0500 Body height 152.4 cm Poppy Pham Work Phone: [facility] 205 DO Work Phone: 06-14-2022 13:47-0500 Body mass index (BMI) [Ratio] 27.56 kg/m2 Poppy Pham Work Phone: [facility] 205 DO Work Phone: 06-14-2022 13:47-0500 Body surface area Derived from formula 1.61 m2 Poppy Pham Work Phone: [facility] 205 DO Work Phone: 06-14-2022 13:47-0500 Body weight 64.02 kg Poppy Pham Work Phone: [facility] 205 DO Work Phone: 06-14-2022 13:47-0500 Diastolic blood pressure 58 mm[Hg] Poppy Pham Work Phone: [facility] 205 DO Work Phone: 06-14-2022 13:47-0500 Heart rate 78 /min Poppy Pham Work Phone: [facility] 205 DO Work Phone: 06-14-2022 13:47-0500 SaO2% (BldA) [Mass fraction] 98 % Poppy Pham Work Phone: [facility] 205 DO Work Phone: 06-14-2022 13:47-0500 Systolic blood pressure 102 mm[Hg] Poppy Pham Work Phone: [facility] 205 DO Work Phone: 05-07-2022 08:36-0500 Body height 152.4 cm Poppy Pham Work Phone: [facility] 205 DO Work Phone: 05-07-2022 08:36-0500 Body mass index (BMI) [Ratio] 27.05 kg/m2 Poppy Pham Work Phone: [facility] 205 DO Work Phone: 05-07-2022 08:36-0500 Body surface area Derived from formula 1.6 m2 Poppy Pham Work Phone: [facility] 205 DO Work Phone: 05-07-2022 08:36-0500 Body weight 62.82 kg Poppy Pham Work Phone: [facility] 205 DO Work Phone: 05-07-2022 08:36-0500 Diastolic blood pressure 58 mm[Hg] Poppy Pham Work Phone: [facility] 205 DO Work Phone: 05-07-2022 08:36-0500 Heart rate 100 /min Poppy Pham Work Phone: [facility] 205 DO Work Phone: 05-07-2022 08:36-0500 SaO2% (BldA) [Mass fraction] 97 % Poppy Pham Work Phone: [facility] 205 DO Work Phone: 05-07-2022 08:36-0500 Systolic blood pressure 104 mm[Hg] Poppy Pham Work Phone: [facility] 205 DO Work Phone: 05-04-2022 13:32-0500 Body temperature 97.5 [degF] Elicia Older DAIRY EQUIPMENT INSTALLER.[employer] T[employer] MECHANIC Work Phone: [facility] 05-04-2022 13:32-0500 Body weight 60.78 kg Elicia Older DAIRY EQUIPMENT INSTALLER.[employer] T[employer] MECHANIC Work Phone: [facility] 05-04-2022 13:32-0500 Diastolic blood pressure 62 mm[Hg] Elicia Older DAIRY EQUIPMENT INSTALLER.[employer] T[employer] MECHANIC Work Phone: [facility] 05-04-2022 13:32-0500 Heart rate 96 /min Elicia Older DAIRY EQUIPMENT INSTALLER.[employer] MECHANIC Work Phone: [facility] 05-04-2022 13:32-0500 Respiratory rate 20 /min Elicia Older DAIRY EQUIPMENT INSTALLER.[employer] MECHANIC Work Phone: [facility] 05-04-2022 13:32-0500 Systolic blood pressure 110 mm[Hg] Elicia Older DAIRY EQUIPMENT INSTALLER.[employer] T[employer] MECHANIC Work Phone: [facility] 04-26-2022 19:12-0500 Body height 154.9 cm Lang Chen MD Work Phone: [facility] 04-26-2022 19:12-0500 Body temperature 97.59 [degF] Lang Chen MD Work Phone: [facility] 04-26-2022 19:12-0500 Body weight 62.14 kg Lang Chen MD Work Phone: [facility] 04-26-2022 19:12-0500 Diastolic blood pressure 60 mm[Hg] Lang Chen MD Work Phone: [facility] 04-26-2022 19:12-0500 Heart rate 88 /min Lang Chen MD Work Phone: [facility] 04-26-2022 19:12-0500 Respiratory rate 18 /min Lang Chen MD Work Phone: [facility] 04-26-2022 19:12-0500 Systolic blood pressure 112 mm[Hg] Lang Chen MD Work Phone: [facility] 04-17-2022 03:37-0500 Body temperature 98.24 [degF] DR ANAND JOSE DO [facility] 04-17-2022 03:37-0500 Heart rate 89 /min DR ANAND JOSE DO [facility] 04-17-2022 03:37-0500 Respiratory rate 18 /min DR ANAND JOSE DO [facility] 04-17-2022 02:18-[address] ANAND JOSE DO [facility] 04-17-2022 02:18-0500 Body height 152.[address] ANAND JOSE DO [facility] 04-17-2022 02:18-0500 Body temperature 98.24 [degF] DR ANAND JOSE DO [facility] 04-17-2022 02:18-0500 Body weight 63.[address] ANAND JOSE DO [facility] 04-17-2022 02:18-0500 Diastolic Blood Pressure Non-Invasive [address] ANAND JOSE DO [facility] 04-17-2022 02:18-0500 Heart rate 111 /min DR ANAND JOSE DO [facility] 04-17-2022 02:18-0500 Respiratory rate 20 /min DR ANAND JOSE DO [facility] 04-17-2022 02:18-0500 Systolic Blood Pressure Non-Invasive [address] ANAND JOSE DO [facility] 04-14-2022 09:41-0500 Diastolic blood pressure 63 mm[Hg] No Primary Care Physician [facility] Work Phone: 04-14-2022 09:41-0500 Heart rate 72 /min No Primary Care Physician [facility] Work Phone: 04-14-2022 09:41-0500 Respiratory rate 15 /min No Primary Care Physician [facility] Work Phone: 04-14-2022 09:41-0500 SaO2% (BldA) [Mass fraction] 98 % No Primary Care Physician [facility] Work Phone: 04-14-2022 09:41-0500 Systolic blood pressure 124 mm[Hg] No Primary Care Physician [facility] Work Phone: 04-14-2022 08:04-0500 Body height 152.4 cm No Primary Care Physician [facility] Work Phone: 04-14-2022 08:04-0500 Body mass index (BMI) [Ratio] 27.5 kg/m2 No Primary Care Physician [facility] Work Phone: 04-14-2022 08:04-0500 Body temperature 96.1 [degF] No Primary Care Physician [facility] Work Phone: 04-14-2022 08:04-0500 Body weight 63.86 kg No Primary Care Physician [facility] Work Phone: Encounters Encounter Date Encounter Type Care Provider Facility Start: 01-17-2025 End: 01-17-2025 Patient encounter procedure Kaylah Ospina NP-C -[facility] Work Phone: Start: 01-17-2025 End: 01-17-2025 ambulatory [facility] Start: 12-26-2024 [facility] Start: 12-04-2024 End: 12-04-2024 Patient encounter procedure Mansi Clemente STATIONARY ENGINEER REFRIGERATION-C -[facility] Work Phone: Start: 12-04-[address] Sal Mcgraw MD -[facility] Start: 12-04-2024 End: 12-04-2024 ambulatory No Primary Care Physician -[facility] Start: 10-01-2024 End: 10-01-2024 ambulatory No Primary Care Physician [facility] Work Phone: Start: 10-01-2024 End: 10-01-2024 Patient encounter procedure Kaylah LAIRD -[facility] Work Phone: Start: 10-01-2024 End: 10-01-2024 [facility] Facility:[facility] Start: 09-12-2024 End: 09-12-2024 Patient encounter procedure Kaylah LAIRD -Medical Out Work Phone: Start: 09-12-2024 End: 09-12-2024 ambulatory No Primary Care Physician [facility] Work Phone: Start: 09-05-2024 End: 09-05-2024 Patient encounter procedure Kaylah Osipna NP-C -[facility] Work Phone: Start: 09-05-2024 End: 09-05-2024 ambulatory No Primary Care Physician [facility] Work Phone: Start: 09-04-2024 End: 09-04-2024 Patient encounter procedure Kaylah Ospina NP-C -[facility] Work Phone: Start: 09-04-2024 End: 09-04-2024 ambulatory No Primary Care Physician [facility] Work Phone: Start: 08-30-2024 Encounter for gynecological examination (general) (routine) without abnormal findings Kaylah Ospina [facility] Start: 08-28-2024 End: 08-28-2024 Patient encounter procedure Kaylah LAIRD -[facility] Work Phone: Start: 08-28-2024 End: 08-28-2024 ambulatory No Primary Care Physician [facility] Work Phone: Start: 08-21-2024 End: 08-21-[address] Dain Mcgraw MD -[facility] Work Phone: Start: 08-21-2024 End: 08-21-2024 ambulatory Dain Mcgraw Facility:[facility] Start: 08-16-2024 Non-patient / Non-visit Tammy Serna -[facility] Work Phone: Start: 08-16-2024 ambulatory Tammy Carcamo Facility :[facility] Start: 08-13-2024 End: 08-13-2024 Patient encounter procedure Kaylah LAIRD -Ultrasound, [facility] Work Phone: Start: 08-13-2024 End: 08-13-2024 ambulatory Poppy Pham Facility:[facility] Start: 08-08-2024 End: 08-08-2024 Patient encounter procedure Kaylah LAIRD -[facility] Work Phone: Start: 08-08-2024 End: 08-08-2024 Patient encounter status Kaylah LAIRD [facility] Start: 08-08-2024 End: 08-08-2024 ambulatory No Primary Care Physician [facility] Work Phone: Start: 08-08-2024 End: 08-08-2024 ambulatory Kaylah Ospina Facility:[facility] Start: 05-19-2023 End: 05-20-2023 ambulatory JANINA GARCIA Facility:[facility] Start: 05-19-2023 End: 05-19-2023 ambulatory JANINA GARCIA Facility:[facility] Start: 05-19-2023 End: 05-19-2023 Patient encounter procedure Janina Garcia MD Work Phone: OB/Gynecology Comment on above: Abnormal uterine ble eding (AUB) (Primary Dx); Irregular menses; PCOS (polycystic ovarian syndrome) Start: 06-14-2022 Office outpatient vi sit 15 minutes Poppy K Ankit Work Phone: [facility] Work Phone: Start: 06-14-2022 Patient encounter procedure Poppy Fregoso Pham Work Phone: [facility] 205 DO Work Phone: Start: 06-14-2022 ambulatory Ms. Poppy Pham Fac ility:[id number] Start: 06-08-2022 AUDIT Poppy Fregoso Ankit Work Phone: [facility] Work Phone: Start: 05-24-2022 AUDIT Poppy Fregoso Ankit Work Phone: [facility] 205 DO Work Phone: Start: 05-17-2022 AUDIT Poppy Fregoso Pham Work Phone: [facility] 205 DO Work Phone: Start: 05-14-2022 AUDIT Poppy Fregoso Ankit Work Phone: [facility] 205 DO Work Phone: Start: 05-11-2022 Telephone encounter Lang martinez MD Work Phone: Internal Medicine [facility] Comment on above: Release Of Medical R ecords Start: 05-09-2022 ambulatory Brandi Whitt APRN.CNM Work Phone: [facility] ASIFMIFFLINTiffanie Start: 05-09-2022 Patient encounter procedure Brandi Whitt APRN.MARICARMEN Work Phone: OB/Gynecology Comment on above: Appointment Start: 05-07-2022 Office outpatient ne w 45 minutes Poppy Pham Work Phone: [facility] 205 DO Work Phone: Start: 05-07-2022 ambulatory Ms. Poppy Pham Fac ility:[id number] Start: 05-04-2022 End: 05-04-2022 Patient encounter procedure Elicia Older DAIRY EQUIPMENT INSTALLER.[employer] T[employer] MECHANIC Work Phone: [facility] Medicine [facility] Comment on above: Dizziness (Primary D x); Left-sided headache; Blurred vision, left eye; Anxiety; Numbness and tingling Start: 04-26-2022 End: 04-26-2022 Patient encounter procedure Lang Chen MD Work Phone: [facility] Comment on above: Vertigo (Primary Dx) ; Tinnitus aurium, right; Anxiety Start: 04-17-2022 End: 04-17-2022 Emergency department patient visit DR. ANAND OJSE DO Facility:B Start: 04-17-2022 End: 04-17-2022 Emergency department patient visit DR ANAND JOSE DO [facility] Start: 04-14-2022 End: 04-14-2022 Emergency department patient visit No Primary Care Physician [facility] Start: 01-25-2022 End: 01-25-2022 Patient encounter procedure No Primary Care Physician [facility] Procedures Date Procedure Procedure Detail Performing Clinician Start: 12-04-2024 Immature reticulocyte fraction No Primary Care Physician Start: 12-04-2024 Total iron binding c apacity measurement No Primary Care Physician Start: 10-01-2024 Pelvic echography No Pr imary Care Physician Start: 08-13-2024 Pelvic echography No Pr imary Care Physician Start: 08-08-2024 Liquid based cervica l cytology screening No Primary Care Physician Comment on above: NEGATIVE FOR INTRAEP ITHELIAL LESION OR MALIGNANCY. This liquid based Th inPrep(R) pap test was screened withthe use of an image guided system. The HPV DNA reflex c saraheria were not met with this specimenresult therefore, no HPV testing was performed.Performed at: - [facility] [place] [id number] Director: Shaunna Allison MD, Phone: [phone] Start: 08-08-2024 Dehydroepiandrostero ne sulfate level No Primary Care Physician Start: 08-08-2024 Serum progesterone measurement No Primary Care Physician Comment on above: Follicular phase 0.1 - 0.9 Luteal phase 1.8 - 23.9 Ovulation phase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 lansoprazole (Prevacid). Amoxicillin may also be used for purposes not listed in this medication guide. What should I discuss with my healthcare provider before taking amoxicillin? You should not use this medicine if you are allergic to any penicillin antibiotic, such as ampicillin, dicloxacillin, oxacillin, penicillin, or ticarcillin. Tell your doctor if you have ever had: kidney disease; mononucleosis (also called 'mono'); diarrhea caused by taking antibiotics; or food or drug allergies (especially to a cephalosporin antibiotic such as Omnicef, Cefzil, Ceftin, Keflex, and others). It is not known whether this medicine will harm an unborn baby. Tell your doctor if you are or plan to become . Amoxicillin can make control pills less effective. Ask your doctor about using a non-hormonalbirth control (condom, diaphragm, cervical cap, or contraceptive sponge) to prevent . It may not be safe to breastfeed while using this medicine. Ask your doctor about any risk. How should I take amoxicillin? Follow all directions on your prescription label and read all medication guides or instruction sheets. Use the medicine exactly as directed. Take this medicine at the same time each day. Some forms of amoxicillin may be taken with or without food. Check your medicine label to see if you should take your amoxicillin with food or not. Shake the oral suspension (liquid) before you measure a dose. Measure liquid medicine with the dosing syringe provided, or use a medicine dose-measuring device (not a kitchen spoon). You may mix the liquid with water, milk, baby formula, fruit juice, or roderick gayathri. Drink all of the mixture right away. Do not save for later use. You must chew the chewable tablet before you swallow it. Swallow the regular tablet whole and do not crush, chew, or break it. You will need frequent medical tests. If you are taking amoxicillin with clarithromycin and/or lansoprazole to treat stomach ulcer, use all of your medications as directed. Read the medication guide or patient instructions provided with each medication. Do not change your doses or medication schedule without your doctor's advice. Use this medicine for the full prescribed length of time, even if your symptoms quickly improve. Skipping doses can increase your risk of infection that is resistant to medication. Amoxicillin will not treat a viral infection such as the flu or a common cold. Do not share this medicine with another person, even if they have the same symptoms you have. This medicine can affect the results of certain medical tests. Tell any doctor who treats you that you are using amoxicillin. Store at room temperature away from moisture, heat, and light. You may store liquid amoxicillin in a refrigerator but do not allow it to freeze. Throw away any liquid amoxicillin that is not used within 14 days after it was mixed at the pharmacy. What happens if I miss a dose? Skip the missed dose and use your next dose at the regular time. Do not use two doses at one time. What happens if I overdose? Seek emergency medical attention or call the Poison Help line at . What should I avoid while taking amoxicillin? Antibiotic medicines can cause diarrhea, which may be a sign of a new infection. If you have diarrhea that is watery or bloody, call your doctor before using anti-diarrhea medicine. What are the possible side effects of amoxicillin? Get emergency medical help if you have signs of an allergic reaction (hives, difficult breathing, swelling in your face or throat) or a severe skin reaction (fever, sore throat, burning eyes, skin pain, red or purple skin rash with blistering and peeling). Call your doctor at once if you have: severe stomach pain; or diarrhea that is watery or bloody (even if it occurs months after your last dose). Common side effects may include: nausea, vomiting, diarrhea; or rash. This is not a complete list of side effects and others may occur. Call your doctor for medical advice about side effects. You may report side effects to FDA at 6-995-EYC-4654. What other drugs will affect amoxicillin? Tell your doctor about all your other medicines, especially: any other antibiotics; allopurinol; probenecid; or a blood thinner--warfarin, Coumadin, Jantoven. This list is not complete. Other drugs may affect amoxicillin, including prescription and xjcu-sye-uxupiju medicines, vitamins, and herbal products. Not all possible drug interactions are listed here. Where can I get more information? Your pharmacist can provide more information about amoxicillin. Remember, keep this and all other medicines out of the reach of children, never share your medicines with others, and use this medication only for the indication prescribed. Every effort has been made to ensure that the information provided by [employer]') is accurate, up-to-date, and complete, but no guarantee is made to that effect. Drug information contained herein may be time sensitive. [employer] information has been compiled for use by healthcare practitioners and consumers in the [place] and therefore [employer] does not warrant that uses outside of the [place] are appropriate, unless specifically indicated otherwise. [employer] drug information does not endorse drugs, diagnose patients or recommend therapy. [employer] drug information isan informational resource designed to assist licensed healthcare practitioners in caring for their p atients and/or to serve consumers viewing this service as a supplement to, and not a substitute for, the expertise, skill, knowledge and judgment of healthcare practitioners. The absence of a warningfor a given drug or drug combination in no way should be construed to indicate that the drug or drug combination is safe, effective or appropriate for any given patient. [employer] does not assume any responsibility for any aspect of healthcare administered with the aid of information [employer] provides. The information contained herein is not intended to cover all possible uses, directions, precautions, warnings, drug interactions, allergic reactions, or adverse effects. If you have questions about the drugs you are taking, check with your doctor, nurse or pharmacist. Copyright 2609-0836 [employer]. Version: 10.. Revision Date: 03/13/2019. [employer] Middle Ear Infection (Adult) You have an infection of the middle ear, the space behind the eardrum. This is also called acute otitis media (AOM). Sometimes it is caused by the common cold. This is because congestion can block the internal passage (eustachian tube) that drains fluid from the middle ear. When the middle ear fills with fluid, bacteria can grow there and cause an infection. Oral antibiotics are used to treat this illness, not ear drops. Symptoms usually start to improve within 1 to 2 days of treatment. Home care The following are general care guidelines: Finish all of the antibiotic medicine given, even though you may feel better after the first few days. You may use lygx-ofm-rrymjaf medicine, such as acetaminophen or ibuprofen, to control pain and fever, unless something else was prescribed. If you have chronic liver or kidney disease or have ever had a stomach ulcer or gastrointestinal bleeding, talk with your healthcare provider before using these medicines. Do not give aspirin to anyone under 18 years of age who has a fever. It may cause severe illness or . Follow-up care Follow up with your healthcare provider, or as advised, in 2 weeks if all symptoms have not gotten better, or if hearing doesn't go back to normal within 1 month. When to seek medical advice Call your healthcare provider right away if any of these occur: Ear pain gets worse or does not improve after 3 days of treatment Unusual drowsiness or confusion Neck pain, stiff neck, or headache Fluid or blood draining from the ear canal Fever of 100.4 F (38 C) or as advised Seizure [id number] [employer]. [address] [place] [address]. All rights reserved. This information is not intended as a substitute for professional medical care. Always follow yourhealthcare professional's instructions. Your Body s Response to Anxiety Normal anxiety is part of the body s natural defense system. It's an alert to a threat that is unknown, vague, or comes from your own internal fears. While you re in this state, your feelings can range from a vague sense of worry to physical sensations such as a pounding heartbeat. These feelings make you want to react to the threat. An anxiety response is normal in many situations. But when you have an anxiety disorder, the same response can occur at the wrong times. Anxiety can be helpful Normal anxiety is a signal from your brain that warns you of a threat and is a normal response to help you prevent something or decrease the bad effects of something you can't control. For example, anxiety is a normal response to situations that might damage your body, separate you from a loved one, or lose your job. The symptoms of anxiety can be physical and mental. How does it feel? At certain times, people with anxiety may have: Dizziness Muscle tension or pain Restlessness Sleeplessness Trouble concentrating Racing heartbeat Fast breathing Shaking or trembling Stomachache Diarrhea Loss of energy Sweating Cold, clammy hands Chest pain Dry mouth Anxiety can also be a problem Anxiety can become a problem when it is hard to control, occurs for months, and interferes with important parts of your life. With an anxiety disorder, your body has the response described above, butin inappropriate ways. The response a person has depends on the anxiety disorder he or she has. With some disorders, the anxiety is way out of proportion to the threat that triggers it. With others, anxiety may occur even when there isn t a clear threat or trigger. Who does it affect? Some people are more prone to persistent anxiety than others. It tends to run in families, and it affects more younger people than older people, and more women than men. But no age, race, or gender is immune to anxiety problems. Anxiety can be treated The good news is that the anxiety that s disrupting your life can be treated. Check with your healthcare provider and rule out any physical problems that may be causing the anxiety symptoms. If an anxiety disorder is diagnosed seek mental healthcare. This is an illness and it can respond to treatment. Most types of anxiety disorders will respond to "talk therapy" and medicines. Working with your doctor or other healthcare provider, you can develop skills to help you cope with anxiety. You can also gain the perspective you need to overcome your fears. Note: Good sources of support or guidance can be found at your local hospital, mental health clinic, or an employee assistance program. How to cope with anxiety If anxiety is wearing you down, here are some things you can do to cope: Keep in mind that you can t control everything about a situation. Change what you can and let the rest take its course. Exercise it s a great way to relieve tension and help your body feel relaxed. Avoid caffeine and nicotine, which can make anxiety symptoms worse. Fight the temptation to turn to alcohol or unprescribed drugs for relief. They only make things worse in the long run. Educate yourself about anxiety disorders. Keep track of helpful online resources and books you can use during stressful periods. Try stress management techniques such as meditation. Consider online or in-person support groups. 5582-5567 [employer]. [address] [facility], [place] [address]. All rights reserved. This information is not intended as a substitute for professional medical care. Always follow yourhealthcare professional's instructions. Additional Information VACCINATE! IT SAVES LIVES! Members of the community who have not yet received the COVID-19 vaccine and would like to receive it can visit one of [facility] vaccine clinics. There are many vaccine clinic locations within the [facility]. For locations and available times, please visit [email or web address]. It is important to note that some COVID mobile vaccine clinics are held outdoors and may be canceled in rainy orstormy conditions. To learn more about pediatric vaccinations (ages 5-11), we invite you to visit the [facility] webpage. [email or web address]/[email or web address] [email or web address].htmlTo learn more about the COVID-19 vaccine, we invite you to visit the [facility] website for a list of frequently asked questions. [email or web address] _[email or web address] [facility] Patient Portal Access Instructions: Stay connected with your healthcare team and access your personal medical information anytime with the [facility] Patient Portal. If you would like a full copy of your medical records please contact the [facility] Medical Records Department Tuesday through Tuesday between 8a.m. and 4:30p.m. Please follow the directions below to access the portal: 1.Access the email account you provided upon registration to the hospital.2.Look for an invitation email from [facility].3.Open the email and access the invitation link: Accept Invitation to [facility]4.Fill in the required power to create your account. Sign into [email or web address] with your username and password that you created in the above steps to stay up to date. You can then view a summary of results, a summary of your visits, and the ability to download your summaries to your computer or send the information securely to a physician. Remember that your healthcare information is confidential, so carefully consider who you will allow to register on the [facility] Patient Portal for access to your information. You can also access the [facility] Patient Portal on the [employer] delfin. Simply click on "Health Records" under "HealthData" and then click on the Rain logo. HOW TO SAFELY DISPOSE OF PRESCRIPTION MEDICATIONS Please use one of the following methods to safely dispose of your unused medications. 1.Use a drug disposal kit: the drug disposal pouch allows you to safely discard your old and unuseddrugs. Ask your nurse to give you one when you are discharged.2.Visit a local take-back location: Many local pharmacies and police departments have programs that collect old and unwanted prescriptiondrugs. Call your local pharmacy or go to http://Evoz.[employer]/8H8Ja6u to find one close to you.3.Make use of household items: Use cat litter or old coffee grounds to dispose medications if other options arenot available. Mix your drugs with these household products, seal them in an airtight container andthrow it into the garbage. Call [facility]: [phone] to be sure your drugs can be disposed of in this way. Some medicines may require a different approach.4.Never flush your medications down the toilet. IF YOU HAVE BEEN PRESCRIBED AN OPIOIDS FOR PAIN If you have been prescribed an opioid (such as hydrocodone, oxycodone or morphine), it is critical to understand the possible side effects and risks of opioid pain medications. Even when taken as directed, opioids can have several side effects including: Tolerance, meaning you might need to take more of a medication for the same pain relief. Nausea, vomiting and/or constipation. Sleepiness, dizziness, dry mouth, confusion, depression or itching. Physical dependence, meaning you have withdrawal symptoms when a medication is stopped ? this can develop within a few days. KNOW YOUR RESPONSIBILITIES It is important to know exactly how much and how often to take the opioid pain medications you are prescribed. Never take opioids in higher amounts or more often than prescribed. Do not combine opioids with alcohol or other drugs that cause drowsiness, such as benzodiazepines, also known as benzos,including diazepam and alprazolam, muscle relaxants or sleep aids. Never sell or share prescriptionopioids. This is illegal. Store opioids in a secure place and out of reach of others (including children, family, friends and visitors). The last page(s) of this document has been signed and retained as a CHART COPY Signatures Patient Education Materials Otitis Media, Antibiotic Treatment (Adult) Your Body s Response to Anxiety Medication Leaflets hydroxyzine, amoxicillin My discharge plan and instructions have been reviewed and explained to me and I,FARA WALDEN understand my current condition and have read and understand these discharge instructions. I have received a written copy of the plan/instructions. If I have questions, I am aware that I should contact my doctor. Patient/Binding Printer Signature: Date/Time: Relationship to Patient: Witness Name/Signature: Date/Time: [facility]08-14-2019 History of Past illness Narrative* Problem Noted Date Resolved Date Iron deficiency anemia due to chronic blood loss 11/29/2018 04/26/2022 documented as of this encounter (statuses as of 04/27/2022) [facility]08-14-2019 History of Past illness Narrative* Problem Noted Date Resolved Date Iron deficiency anemia due to chronic blood loss 11/29/2018 04/26/2022 documented as of this encounter (statuses as of 05/05/2022) [facility]2019 History of Past illness Narrative* Problem Noted Date Resolved Date Iron deficiency anemia due to chronic blood loss 11/29/2018 04/26/2022 documented as of this encounter (statuses as of 05/10/2022) [facility] History of Past illness Narrative* Problem Noted Date Resolved Date Iron deficiency anemia due to chronic blood loss 11/29/2018 04/26/2022 documented as of this encounter (statuses as of 05/11/2022) [facility] History of Past illness Narrative* Problem Noted Date Diagnosed Date Resolved Date Iron deficiency anemia due t o chronic blood loss 11/29/2018 04/26/2022 documented as of this encounter (statuses as of 05/19/2023) [facility] No data available for this section [facility] Evaluation note* Diagnosis Onset Date Resolution Status 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, pre-employment acute [facility] Work Phone: Evaluation note* Diagnosis Vertigo- Primary Dizziness and giddiness Tinnitus aurium, right Anxiety Anxiety state, unspecified documented in this encounter [facility] note* Diagnosis Dizziness- Primary Dizziness and giddiness Left-sided headache Headache Blurred vision, left eye Other specified visual disturbances Anxiety Anxiety state, unspecified Numbness and tingling Disturbance of skin sensation documented in this encounter [facility] note* Diagnosis Abnormal uterine bleeding (AUB)- Primary Irregular menses Irregular menstrual cycle PCOS (polycystic ovarian syndrome) Polycystic ovaries documented in this encounter [facility] Fara returns for follow up. * [facility] counseling starts in July. [facility] [address] DO Work Phone: History of Present illness Narrative* Fara returns for follow up. * [facility] counseling starts in July. * anxiety/depression: stopped taking sertraline. Switched to Escitalopram. Also discussed GENESIGHT testing. She would like to have this done. * Vitamin D def: Started taking Vitamin D supplement. Tolerating well. [facility] Work Phone: Reason for referral (narrative)* Diagnostic Procedure Only (Routine) - Pending Review Specialty Diagnoses / Procedures Referred By Junito harvey Referred To Contact [facility] Diagnoses Abnormal uterine bleeding (AUB) Irregular menses Procedures PELVIC US WHI US PELVIC NONOBSTETRIC REAL-TIME IMAGE COMPLETE Janina Garcia MD [address] [place] [address] [facility] [address] [place] [id number] Referral ID Status Reason Start Date Expiration Date Visits Requested Visits Authorized [id number] Pending Review Auto-Generat ed Referral 05/19/2023 05/18/2024 1 1 * Diagnostic Procedure Only (Routine) - Authorized Specialty Diagnoses / Procedures Referred By Contac t Referred To Contact US IMAGING Diagnoses Abnormal uterine bleeding (AUB) Irregular menses Procedures US FEMALE PELVIS TRANSVAG US TRANSVAGINAL Janina Garcia MD [address] [place] [address] [place] [id number] Referral ID Status Reason Start Date Expiration Date Visits Requested Visits Authorized [id number] Authorized Auto-Generat ed Referral 05/19/2023 06/17/2024 1 1 [facility] for referral (narrative)No reason for referral information [facility]WSelect [facility] Work Phone: Summary Purpose Family History Unknown Family Member Name Dates Details Family history of hypertensi on: Father(V17.49, Z82.49) Status:Active Unknown Family Member Name Dates Details Family history of hypertensi on: Father(V17.49, Z82.49) Status:Active Unknown Family Member Name Dates Details Family history of hypertensi on: Father(V17.49, Z82.49) Status:Active Unknown Family Member Name Dates Details Family history of hypertensi on: Father(V17.49, Z82.49) Status:Active Unknown Family Member Name Dates Details Family history of hypertensi on: Father(V17.49, Z82.49) Status:Active Unknown Family Member Name Dates Details Family history of hypertensi on: Father(V17.49, Z82.49) Status:Active Unknown Family Member Name Dates Details Family history of hypertensi on: Father(V17.49, Z82.49) Status:Active Relationship Condition Age at Onset Recorded Date/T bettina mother Anxiety Unknown Arthritis Unknown father Alcoholism Unknown Hypertension Unknown brother Disorder of intestine Unknown Anxiety Unknown Asthma Unknown Advance Directives Advance Directive Response Recorded Date/ Time Living Will No April 14 8:04am Power of Environmental Journalist No April 14, 2022 8:04am Chief Complaint and Reason for Visit Chief Complaint PE PHYSICAL/[place] dizziness Reason for Visit 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, 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 Chief Complaint 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, 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 1:5 3pm Reason for Visit Admit Date Abnormal uterine bleeding August 08 1:53pm PCOS (polycystic ovarian syndrome) August 08, 2024 1:53pm Encounter for routine gynecological exam ination August 08, 2024 1:53pm Chief Complaint 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, 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 1:5 3pm PCOS August 13, 2024 5:5 2pm Amb Documentation August 16, 2024 3:42pm RECURRING IRON DEFICIENCY ANEMIA August 3:22pm 300 MG VENOFER August 28, 2024 12:58 pm Reason for Visit Admit Date Abnormal uterine bleeding August 08 1:53pm PCOS (polycystic ovarian syndrome) August 08, 2024 1:53pm Encounter for routine gynecological exam ination August 08, 2024 1:53pm Iron deficiency anemia due to chronic bl ood loss August 21, 2024 3:22pm Chief Complaint 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, 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 1:5 3pm PCOS August 13, 2024 5:5 2pm Amb Documentation August 16, 2024 3:42pm RECURRING IRON DEFICIENCY ANEMIA August 3:22pm 300 MG VENOFER August 28, 2024 12:58 pm 300 MG VENOFER September 04, 2024 12:56 pm Chief Complaint 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, 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 1:5 3pm PCOS August 13, 2024 5:5 2pm Amb Documentation August 16, 2024 3:42pm RECURRING IRON DEFICIENCY ANEMIA August 3:22pm 300 MG VENOFER August 28, 2024 12:58 pm 300 MG VENOFER September 04, 2024 12:56 pm 4w fu per CB September 05, 2024 9:31a m Chief Complaint 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, 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 1:5 3pm PCOS August 13, 2024 5:5 2pm Amb Documentation August 16, 2024 3:42pm RECURRING IRON DEFICIENCY ANEMIA August 3:22pm 300 MG VENOFER August 28, 2024 12:58 pm 300 MG VENOFER September 04, 2024 12:56 pm 4w fu per CB September 05, 2024 9:31a m 300 MG VENOFER September 12, 2024 1:04p m Reason for Visit Admit Date Abnormal uterine bleeding August 08 1:53pm PCOS (polycystic ovarian syndrome) August 08, 2024 1:53pm Encounter for routine gynecological exam ination August 08, 2024 1:53pm Iron deficiency anemia due to chronic bl ood loss August 21, 2024 3:22pm Abnormal uterine bleeding September 05, 2024 9:31am PCOS (polycystic ovarian syndrome) August 172024 9:31am Iron deficiency anemia due to chronic bl ood loss September 05, 2024 9:31am Chief Complaint 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, 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 1:5 3pm PCOS August 13, 2024 5:5 2pm Amb Documentation August 16, 2024 3:42pm RECURRING IRON DEFICIENCY ANEMIA August 3:22pm 300 MG VENOFER August 28, 2024 12:58 pm 300 MG VENOFER September 04, 2024 12:56 pm 4w fu per CB September 05, 2024 9:31a m 300 MG VENOFER September 12, 2024 1:04p m AUB October 01, 2024 4:20 pm Chief Complaint 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, 2024 1:5 3pm PCOS August 13, 2024 5:5 2pm Amb Documentation August 16, 2024 3:42pm RECURRING IRON DEFICIENCY ANEMIA August 3:22pm 300 MG VENOFER August 28, 2024 12:58 pm 300 MG VENOFER September 04, 2024 12:56 pm 4w fu per CB September 05, 2024 9:31a m 300 MG VENOFER September 12, 2024 1:04p m AUB October 01, 2024 4:20 pm 3 MO - LABS December 04, 2024 1: 29pm 3 MO - LABS (MOVED FROM 11/28/24) December 04, 2024 1:30pm Reason for Visit Admit Date Abnormal uterine bleeding August 08 1:53pm PCOS (polycystic ovarian syndrome) August 08, 2024 1:53pm Encounter for routine gynecological exam ination August 08, 2024 1:53pm Iron deficiency anemia due to chronic bl ood loss August 21, 2024 3:22pm Abnormal uterine bleeding September 05, 2024 9:31am PCOS (polycystic ovarian syndrome) August 172024 9:31am Iron deficiency anemia due to chronic bl ood loss September 05, 2024 9:31am Iron deficiency anemia due to chronic bl ood loss December 04, 2024 1:30pm Chief Complaint Admit Date AUB October 01, 2024 4:20 pm 3 MO - LABS December 04, 2024 1: 29pm 3 MO - LABS (MOVED FROM 11/28/24) December 04, 2024 1:30pm DISCUSS BC January 17, 2025 1: 14pm Reason for Visit Admit Date Iron deficiency anemia due to chronic bl ood loss December 04, 2024 1:30pm PCOS (polycystic ovarian syndrome) Octob er 2024 1:14pm Iron deficiency anemia due to chronic bl ood loss January 17, 2025 1:14pm Reason for Referral Specialty Diagnoses / Procedures Referred By Junito harvey Referred To Contact MR IMAGING Diagnoses Dizziness Left-sided headache Blurred vision, left eye Procedures MRI BRAIN WO IVCON MRI BRAIN BRAIN STEM W/O CONTRAST MATERIAL Thiago, Elicia, DAIRY 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 States she went to 2 ER visits and a physician at [facility]. Was told it was Vertigo and given Meclizine with no relief. 2nd ER visit was given Viosterol also with no relief. No major life changes to note. States she has had anxiety her whole life and was given Zoloft in 2019 but didn't think her anxiey was that bad then and stopped taking Rx.Pt presents for 1 mo f/u after starting Buspirone. States she took it approx. 2.5 weeks but made her very nauseated when she did take rx.Pt presents for 1 mo f/u after starting Buspirone. States she took it approx. 2.5 weeks but made her very nauseated when she did take rx. Additional Source Comments INFORMATION SOURCE (unrecogn ized section and content) DATE CREATED AUTHOR 02/11/2021 [facility] DATE CREATED AUTHOR AUTHOR'S ORGANIZ ATION 04/30/2022 [facility] ([place]) DATE CREATED AUTHOR AUTHOR'S ORGANIZ ATION 06/15/2022 [facility] DATE CREATED AUTHOR AUTHOR'S ORGANIZ ATION 06/18/2022 [facility] DATE CREATED AUTHOR AUTHOR'S ORGANIZ ATION 05/21/2023 [facility] DATE CREATED AUTHOR AUTHOR'S ORGANIZ ATION 01/18/2025 [facility] Goals (unrecognized section and content) Goals may be documented in a n alternate section No data available for this sectionGoals may be documented in an alternate sectionGoals may be documented in an alternate sectionGoals may be documented in an alternate sectionGoals may be documented in an alternate sectionGoals may be documented in an alternate sectionGoals may be documented in an alternate sectionGoals may be documented in an alternate sectionGoals may be documented in an alternate section Care Team (unrecognized sect ion and content) Care Team Personnel Name: PHYSICIAN, NONE Position: Physician Member Role: Primary Care Physician Name: ANAND JOSE DO Position: ED Physician Member Role: Attending Physician Address: Address: [facility] [address] [place] [address] Name: Grace Caballero RN Position: AO RN Member Role: ED RN Source Comments (unrecognize d section and content) In the event this informatio n is protected by the Federal Confidentiality of Alcohol and Drug Abuse Patient Records regulations: The Federal rules restrict any use of the information to criminally investigate or prosecute any alcohol or drug abuse patient.[facility] the event this information is protected by the Federal Confidentiality of Alcohol and Drug Abuse Patient Records regulations: The Federal rules restrict any use of the information to criminally investigate or prosecute any alcohol or drug abuse patient.[facility] HospitalIn the event this information is protected by the Federal Confidentiality of Alcohol and Drug Abuse Patient Records regulations: The Federal rules restrict any use of the information to criminally investigate or prosecute any alcohol or drug abuse patient.[facility] HospitalIn the event this information is protected by the Federal Confidentiality of Alcohol and Drug Abuse Patient Records regulations: The Federal rules restrict any use of the information to criminally investigate or prosecute any alcohol or drug abuse patient.[facility] HospitalIn the event this information is protected by the Federal Confidentiality of Alcohol and Drug Abuse Patient Records regulations: The Federal rules restrict any use of the information to criminally investigate or prosecute any alcohol or drug abuse patient.[facility] Reason for Visit (unrecogniz ed section and content) Reason Comments Establish Care Reason Comments Anxiety Reason Comments Release Of Medical Records Reason Comments Follow Up Discuss pcos Care Teams (unrecognized sec tion and content) Supervisor Toy Assembly Relationship Specialty Start Date End Date Lang Chen MD [address] [place] [address] PCP - General Internal Medicine 04/26/22 Supervisor Toy Assembly Relationship Specialty Start Date End Date Lang Chen MD [address] [place], [place] [address] PCP - General Internal Medicine 04/26/22 Supervisor Toy Assembly Relationship Specialty Start Date End Date Lang Chen MD [address] [place], [place] [address] PCP - General Internal Medicine 04/26/22 Supervisor Toy Assembly Relationship Specialty Start Date End Date Poppy Pham CNP [address] [place] [address] PCP - General Family Medicine 05/11/22 Supervisor Toy Assembly Relationship Specialty Start Date End Date Lang Chen MD [address] [place], [place] [id number] PCP - General Internal Medicine 05/12/22 Team Status: Active Member Role Status Dates SISI Erickson Primary Care Provider Active Team Status: Inactive Member Role Status Dates No Primary Care Physician Primary Care Provider Active Start: August 08, 2024 End: August 08, 2024 No Primary Care Physician Referring Provider Active Start: August 08, 2024 End: August 08, 2024 SISI Tang Attending Provider Active Start: August 08, 2024 End: August 08, 2024 Team Status: Inactive Member Role Status Dates No Primary Care Physician Primary Care Provider Active Start: August 08, 2024 End: August 08, 2024 SISI Tang Attending Provider Active Start: August 08, 2024 End: August 08, 2024 SISI Tang Referring Provider Active Start: August 08, 2024 End: August 08, 2024 Team Status: Inactive Member Role Status Dates SISI Tang Attending Provider Active Start: August 13, 2024 End: August 13, 2024 SISI Tang Referring Provider Active Start: August 13, 2024 End: August 13, 2024 Poppy Pham , STATIONARY ENGINEER REFRIGERATION-C Primary Care Provider Active Start: August 13, 2024 End: August 13, 2024 Team Status: Active Member Role Status Dates STEPHEN EricksonC Primary Care Provider Active Start: August 16, 2024 Tammy Carcamo Attending Provider Active Start: August 16, 2024 Team Status: Inactive Member Role Status Dates Kaylah Ospina NP-C Referring Provider Active Start: August 21, 2024 End: August 21, 2024 Dr. Dain Mcgraw MD Attending Provider Active Start: August 21, 2024 End: August 21, 2024 Team Status: Inactive Member Role Status Dates Kaylah Ospina NP-C Attending Provider Active Start: August 28, 2024 End: August 28, 2024 STEPHEN TangC Referring Provider Active Start: August 28, 2024 End: August 28, 2024 Team Status: Inactive Member Role Status Dates STEPHEN TangC Attending Provider Active Start: September 04, 2024 End: September 04, 2024 STEPHEN TangC Referring Provider Active Start: September 04, 2024 End: September 04, 2024 STEPHEN EricksonC Primary Care Provider Active Start: September 04, 2024 End: September 04, 2024 Team Status: Inactive Member Role Status Dates SISI Erickson Primary Care Provider Active Start: September 05, 2024 End: September 05, 2024 SISI Erickson Referring Provider Active Sta rt: September 05, 2024 End: September 05, 2024 Kaylah Ospina NP-C Attending Provider Active Start: September 05, 2024 End: September 05, 2024 Team Status: Inactive Member Role Status Dates STEPHEN TangC Attending Provider Active Start: September 12, 2024 End: September 12, 2024 STEPHEN TangC Referring Provider Active Start: September 12, 2024 End: September 12, 2024 Poppy Pham NP-C Primary Care Provider Active Start: September 12, 2024 End: September 12, 2024 Team Status: Inactive Member Role Status Dates STEPHEN TangC Attending Provider Active Start: October 01, 2024 End: October 01, 2024 Kaylah Ospina NP-C Referring Provider Active Start: October 01, 2024 End: October 01, 2024 STEPHEN EricksonC Primary Care Provider Active Start: October 01, 2024 End: October 01, 2024 Team Status: Active Member Role/Relationship Status Dates Poppy Pham NP-C Primary Care Provider Active Team Status: Inactive Member Role/Relationship Status Dates No Primary Care Physician Primary Care Provider Active Start: August 08, 2024 End: August 08, 2024 No Primary Care Physician Referring Provider Active Start: August 08, 2024 End: August 08, 2024 STEPHEN TangC Attending Provider Active Start: August 08, 2024 End: August 08, 2024 Team Status: Inactive Member Role/Relationship Status Dates No Primary Care Physician Primary Care Provider Active Start: August 08, 2024 End: August 08, 2024 STEPHEN TangC Attending Provider Active Start: August 08, 2024 End: August 08, 2024 Kaylah Ospina NP-C Referring Provider Active Start: August 08, 2024 End: August 08, 2024 Team Status: Inactive Member Role/Relationship Status Dates STEPHEN TangC Attending Provider Active Start: August 13, 2024 End: August 13, 2024 STEPHEN TangC Referring Provider Active Start: August 13, 2024 End: August 13, 2024 STEPHEN EricksonC Primary Care Provider Active Start: August 13, 2024 End: August 13, 2024 Team Status: Active Member Role/Relationship Status Dates STEPHEN EricksonC Primary Care Provider Active Start: August 16, 2024 Tammy Carcamo Attending Provider Active Start: August 16, 2024 Team Status: Inactive Member Role/Relationship Status Dates STEPHEN TangC Referring Provider Active Start: August 21, 2024 End: August 21, 2024 Dr. Dain Mcgraw MD Attending Provider Active Start: August 21, 2024 End: August 21, 2024 Team Status: Inactive Member Role/Relationship Status Dates STEPHEN TangC Attending Provider Active Start: August 28, 2024 End: August 28, 2024 Kaylah Ospina NP-C Referring Provider Active Start: August 28, 2024 End: August 28, 2024 Team Status: Inactive Member Role/Relationship Status Dates Kaylah Barkman , STATIONARY ENGINEER [employer]ATION-C Attending Provider Active Start: September 04, 2024 End: September 04, 2024 Kaylah Ospina NP-C Referring Provider Active Start: September 04, 2024 End: September 04, 2024 Poppy Pham NP-C Primary Care Provider Active Start: September 04, 2024 End: September 04, 2024 Team Status: Inactive Member Role/Relationship Status Dates Poppy Pham NP-C Primary Care Provider Active Start: September 05, 2024 End: September 05, 2024 Poppy Pham NP-C Referring Provider Active Sta rt: September 05, 2024 End: September 05, 2024 Kaylah Ospina NP-C Attending Provider Active Start: September 05, 2024 End: September 05, 2024 Team Status: Inactive Member Role/Relationship Status Dates STEPHEN TangC Attending Provider Active Start: September 12, 2024 End: September 12, 2024 Kaylah Ospina NP-C Referring Provider Active Start: September 12, 2024 End: September 12, 2024 Poppy Pham NP-C Primary Care Provider Active Start: September 12, 2024 End: September 12, 2024 Team Status: Inactive Member Role/Relationship Status Dates Kaylah Ospina NP-C Attending Provider Active Start: October 01, 2024 End: October 01, 2024 SISI Tang Referring Provider Active Start: October 01, 2024 End: October 01, 2024 Poppy Pham NP-C Primary Care Provider Active Start: October 01, 2024 End: October 01, 2024 Team Status: Active Member Role/Relationship Status Dates Dr. Dain Mcgraw MD Attending Provider Active Start: December 04, 2024 Dr. Dain Mcgraw MD Referring Provider Active Start: December 04, 2024 Poppy Pham NP-C Primary Care Provider Active Start: December 04, 2024 Team Status: Inactive Member Role/Relationship Status Dates Poppy Pham NP-C Primary Care Provider Active Start: December 04, 2024 End: December 04, 2024 STEPHEN EricksonC Referring Provider Active Sta rt: December 04, 2024 End: December 04, 2024 Mansi Clemente NP STATIONARY ENGINE[employer]-C Attending Provider Active Start: December 04, 2024 End: December 04, 2024 Team Status: Active Member Role/Relationship Status Dates SISI Erickson Primary care physician Active Team Status: Inactive Member Role/Relationship Status Dates SISI Tang Attending physician Active Start: October 01, 2024 End: October 01, 2024 SISI Tang Referring Provider Active Start: October 01, 2024 End: October 01, 2024 SISI Erickson Primary care physician Active Start: October 01, 2024 End: October 01, 2024 Team Status: Active Member Role/Relationship Status Dates Dr. Dain Mcgraw MD Attending physician Active Start: December 04, 2024 Dr. Dain Mcgraw MD Referring Provider Active Start: December 04, 2024 SISI Erickson Primary care physician Active Start: December 04, 2024 Team Status: Inactive Member Role/Relationship Status Dates SISI Erickson Primary care physician Active Start: December 04, 2024 End: December 04, 2024 SISI Erickson Referring Provider Active Sta rt: December 04, 2024 End: December 04, 2024 SISI Bishop NP Attending physician Active Start: December 04, 2024 End: December 04, 2024 Team Status: Inactive Member Role/Relationship Status Dates SISI Erickson Primary care physician Active Start: January 17, 2025 End: January 17, 2025 SISI Erickson Referring Provider Active Sta rt: January 17, 2025 End: January 17, 2025 SISI Tang Attending physician Active Start: January 17, 2025 End: January 17, 2025 FOR RECORDS PERTAINING TO PATIENTS WHO ARE OR HAVE BEEN ENROLLED IN A CHEMICAL DEPENDENCY/SUBSTANCEABUSE PROGRAM, SOME INFORMATION MAY BE OMITTED. This clinical summary was aggregated from multiple sources. Caution should be exercised in using it in the provision of clinical care. This summary normalizes information from multiple sources, and as a consequence, information in this document may materially change the coding, format and clinical context of patient data. In addition, data may be omitted in some cases. CLINICAL DECISIONS SHOULD BE BASED ON THE PRIMARY CLINICAL RECORDS. [facility]. provides no warranty or guarantee of the accuracy or completeness of information in this document.
== END | disposition home or self-care (01) ==
LOC: LAB 11:23
PROVIDERS: PCP Nurse Practitioner Family; Referring Provider Nurse Practitioner Family; Visit Provider Nurse Practitioner Family
DX: Z31.9 Encounter for procreative management, unspecified (principal)
CPT/HCPCS: 84144; 36415

== ENCOUNTER → 2025-03-27 | Outpatient (CLI) | payer MEDICAID, SELFPAY ==
[2025-03-29 04:07] LABS: PROGESTERONE 0.3 ng/mL (.)
== END | disposition home or self-care (01) ==
PROVIDERS: Nurse Practitioner Family; PCP Nurse Practitioner Family; Visit Provider Nurse Practitioner Women's Health
DX: E28.2 Polycystic ovarian syndrome (principal)
CPT/HCPCS: 36415; 84144